=== PATIENT | female | born 1985 | race Caucasian/White ===

== ENCOUNTER 2024-11-20 10:18 | Inpatient (IN) ==
--- NOTE | 2024-11-20 10:22 | Emergency Department Note ---
Impression & Plan Stroke-like symptoms, Expressive aphasia ED Provider Note NAME: ZEN MEDEIROS AGE: 39 SEX: F : 1985 ARRIVES VIA: Ambulance INFORMANT: Patient, , EMS report ED PROVIDER(S): Jono Jacques MD CHIEF COMPLAINT: Strokelike symptoms, aphasia MEDICAL DECISION MAKING: Patient presents with the above. The patient's last known well began sometime around 7 although was not called by till 745. The patient reportedly has had improvement since the time of that the had arrived. Patient was made a stroke alert prior to arrival and I did initiate a call to the on-call stroke teleneurologist Dr. Smith and did explain the concerns. Patient was evaluated. Patient does seem to have symmetric leg weakness but has good strength in her upper extremities. Patient had reportedly felt as though she was wobbly or "drunk." Patient not reporting any alcohol tobacco or drug use. She did take some Delsym this morning as she was having some congestion. Patient slightly off and [id number]. No sensory deficits no facial droop. No anisocoria. Patient's blood work is reassuring. Patient has a normal white count H&H and platelet count kidney function is unremarkable. Troponin negative. COVID flu RSV negative the patient did have some upper respiratory symptoms. CT head and CT angiography of the head and neck are negative. After further discussion and evaluation by Dr. Smith he does not think the patient is having an acute stroke. He recommends baby aspirin to start an MRI. It is with the on-call hospitalist service and the patient was admitted to medicine service. I did inform the patient and the patient's family of current recommendations and findings at this time. MRI pending at the time of admission. Discussion w/ other healthcare providers: Dr. Smith telestroke neurology [facility] Lisa Thrasher PA-C and Dr. Gogo Orta Prior /Outside records reviewed: None Differential diagnosis: Infection, dehydration, metabolic abnormality, hypo/hyperglycemia, electrolyte imbalance, anemia, UTI, pneumonia, thyroid dysfunction among others were considered. Diagnostics, as interpreted by me: ECG: Normal sinus rhythm, rate of 75, normal intervals, left axis deviation, T wave versions anteriorly no obvious STEMI. Cardiac monitoring: An order was placed for continuous cardiac monitoring. The monitor shows a rate of 72 with sinus rhythm. Patient was placed on pulse oximetry Medical decision rules: None Imaging studies: I informally interpreted the patient's CT head does not show obvious ICH with formal report to follow. HPI: Patient presents due to concern for strokelike symptoms and difficulty with speaking. This reportedly occurred around 9:00 of the patient began feeling generally unwell around 745. 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 No reported falls or trauma. No prior history of stroke or mini stroke. The patient called her who was concerned and took her to a [facility] walk-in care and then was referred here for further evaluation and treatment. Was notified of a stroke alert prior to arrival. Patient denies any head neck chest back or abdominal pain. No reported falls or trauma. No alcohol tobacco or drug use. The patient does not take blood thinning medications. PAST MEDICAL HISTORY: See Below PAST SURGICAL HISTORY: See Below SOCIAL HISTORY: See Below HOME MEDICATIONS: See Below ALLERGIES: See Below VITALS: See Below PHYSICAL EXAMINATION: GENERAL: NAD, non-toxic. EYE EXAM: Normal conjunctiva. PERRL, no anisocoria and EOM's grossly intact w/o pain. OROPHARYNX: Moist mucus membranes, grossly normal dentition. NECK: Trachea midline, no stridor. Supple, no nuchal rigidity, no adenopathy, non-tender. No signs of meningismus. FROM of the neck with good chin to chest and neck extension. LUNGS: Clear to auscultation. Normal chest wall mechanics. HEART: NSR, no MRG. ABDOMEN: Abdomen soft, non-tender, no masses, no rebound or guarding. BACK: No CVA TTP. SKIN: No rashes and no bruising. UPPER EXTREMITIES: Upper extremities are grossly normal. LOWER EXTREMITIES: Grossly normal, no edema. NEURO EXAM: Awake and alert, follows commands, cranial nerves II through XII grossly intact, slow deliberate stuttering speech, moves all 4 extremities. Slight difficulty with [id number], no drift and no sensory deficits. Past Med/Surg History Problem List (Updated 11/25/24 @ 15:35 by Jono Jacques MD) Expressive aphasia (Acute) Stroke-like symptoms (Acute) Medical History Exercise-induced asthma PATRICK (generalized anxiety disorder) GERD without esophagitis Attention deficit disorder (ADD) without hyperactivity Patellofemoral pain syndrome of right knee Dislocation of right patella Surgical History History of wisdom tooth extraction Family History Mother Stroke Other Diabetes Heart disease Social History Smoking Status: Current some day smoker Tobacco Type: E-cigarettes / Vaping Hx Alcohol Use: Yes Alcohol type: beer Hx Substance Use: No Preferred Language: Slovak [place] [employer] Required: No Beliefs That Will Affect Care: None marital status: Current Living Situation: Spouse current occupational status: employed Feels Safe at Home: Yes Safety Concerns: Feels Safe At This Time Allergies Allergies Allergy/AdvReac Type Severity Reaction Status Date / Time No Known Allergies Allergy Unverified 07/26/23 10:20 Home Meds Home Medications Medication Instructions Recorded Confirmed trazodone 50 mg tablet 75 mg PO DAILY 07/26/23 11/20/24 dexmethylphenidate 5 mg 5 mg PO DAILY 11/20/24 11/20/24 capsule,extended release [id number] fluoxetine 40 mg capsule 80 mg PO DAILY 11/20/24 11/20/24 Results & Data (ED) Home Medications Current Medication List: was personally reviewed by me Laboratory Data Attestation: I reviewed the patient's lab results. 11/21/24 07:34 11/21/24 07:34 Lab Results 11/20/24 11/20/24 Range/Units 10:23 11:28 WBC 9.68 (4.8-10.8) K/ul RBC 4.57 (4.20-5.40) M/uL Hgb 14.0 (12.0-16.0) g/dl Hct 40.9 (37.0-47.0) % MCV 89.5 (80.0-100.0) fL MCH 30.6 (25.0-34.0) pg MCHC 34.2 (32.0-36.0) g/dL RDW Std Deviation 39.5 (36.4-46.3) fL RDW Coeff of Coco 12.0 (11.5-14.5) % Plt Count 277 (130-400) K/uL MPV 9.2 L (9.4-12.4) fL Immature Gran % (Auto) 0.4 % Neut % (Auto) 72.7 % Lymph % (Auto) 17.0 % Mcmullen % (Auto) 8.3 % Eos % (Auto) 1.3 % Baso % (Auto) 0.3 % Neut # (Auto) 7.03 H (1.40-6.50) K/uL Lymph # (Auto) 1.65 (1.20-3.40) K/uL Mcmullen # (Auto) 0.80 H (0.11-0.59) K/uL Eos # (Auto) 0.13 (0.00-0.50) K/uL Baso # (Auto) 0.03 (0.00-0.20) K/uL Immature Gran # (Auto) 0.04 (0.01-0.20) K/uL PT 10.2 (9.0-12.0) Seconds INR 0.9 (0.9-1.1) APTT 26 (21-31) Seconds PTT Ratio 1.0 Sodium 139 (136-145) mmol/L Potassium 3.8 (3.5-5.1) mmol/L Chloride 103 (98-107) mmol/L Carbon Dioxide 28 (21-32) mmol/L Anion Gap 8 (3-11) BUN 6 (6-23) mg/dl Creatinine 0.78 (0.6-1.2) mg/dl Est Cr Clr Drug Dosing Not Reportable eGFR 97.80 BUN/Creatinine Ratio 7.7 L (10-20) Glucose 92 (70-99(Fasting)) mg/dl Calcium 9.2 (8.6-10.3) mg/dl Magnesium 1.7 (1.7-2.4) mg/dl Total Bilirubin 0.4 (0.2-1.0) mg/dl AST 24 (13-39) U/L ALT 13 (7-52) U/L Alkaline Phosphatase 75 (34-104) U/L Troponin I High Sens < 2.3 (0-14) pg/ml Total Protein 7.2 (6.0-8.3) gm/dl Albumin 4.5 (3.4-5.0) gm/dl Globulin 2.7 (2.5-4.0) gm/dl Albumin/Globulin Ratio 1.7 (0.9-2) SARS-CoV-2 (PCR) NEGATIVE (Negative) Influenza Type A (PCR) Negative (Neg) Influenza Type B (PCR) Negative (Neg) RSV (RT-PCR) Negative (Neg) Administered Medications Discontinued Medications Aspirin (Aspirin Chew 324 Mg) 81 mg PO NOW STA Stop: 11/20/24 11:05 Last Admin: 11/20/24 11:26 Dose: 81 mg Documented By: KAREN Atorvastatin Calcium (Atorvastatin 40 Mg Tab) [facility] [place] [facility] Stop: 12/20/24 12:29 Last Admin: 11/20/24 13:07 Dose: 40 mg Documented By: PETERSON Enoxaparin Sodium (Enoxaparin Inj 40 Mg/0.4 Ml Syr) 40 [facility] [place] Stop: 12/21/24 08:59 Last Admin: 11/21/24 07:35 Dose: 40 mg Documented By: ESTELA Sodium Chloride (Nss) 1,000 mls @ 80 mls/hr IV .[id number] [facility] Stop: 11/23/24 15:44 Last Infusion: 11/21/24 10:08 Dose: 0 mls/hr Documented By: Admin: 11/21/24 04:10 Dose: 80 mls/hr Documented By: Infusion: 11/21/24 04:10 Dose: Infused Documented By: Admin: 11/20/24 16:42 Dose: 80 mls/hr Documented By: ESTELA Ioversol (Optiray 320 125ml) 120 ml IV ONCE ONE Stop: 11/20/24 10:36 Last Admin: 11/20/24 10:35 Dose: 120 ml Documented By: SIL Imaging Data Radiologist's Impression: Head CT 11/20/24 10:07 CT head/brain wo con CLINICAL HISTORY: neuro deficit, acute stroke suspected. TECHNIQUE: Multiple axial CT images of the head were obtained without contrast. A dose lowering technique was utilized adhering to the principles of ALARA. COMPARISON: None FINDINGS: No intracranial hemorrhage seen. No mass effect, midline shift, or hydrocephalus. No skull fractures seen. There is mild mucosal thickening at the right maxillary sinus. IMPRESSION: No acute findings. ACT 112: Negative or not required by law. The above report was generated using voice recognition software. It may contain grammatical, syntax or spelling errors. Electronically signed by: Pablo Fleming M.D. 11/20/2024 10:43 AM Head CTA 11/20/24 10:07 CT angio head w con CLINICAL HISTORY: neuro deficit, acute stroke suspected. COMPARISON STUDY: Noncontrast head CT earlier today TECHNIQUE: Unenhanced axial CT scan of the brain is performed. Subsequently, following the IV administration of 120 cc of Optiray, CT angiogram of the brain was performed from the skull base to the vertex. Images are reviewed in the axial, sagittal, and coronal planes. 3-D MIPS images are created and assessed. IV contrast was administered without complication. All measurements were obtained according to NASCET criteria. A dose lowering technique was utilized adhering to the principles of ALARA. CT DOSE: 987 FINDINGS: Distal right vertebral artery is diminutive, anatomic variant. Distal vertebral and internal carotid arteries are patent. Basilar artery is patent. Anterior, middle, and posterior cerebral arteries are patent. Cerebral venous sinuses opacify normally. There is prominent mucosal thickening in the right maxillary sinus. IMPRESSION: No arterial narrowing or occlusion seen at the brain. ACT 112: Negative or not required by law. The above report was generated using voice recognition software. It may contain grammatical, syntax or spelling errors. Electronically signed by: Pablo Fleming M.D. 11/20/2024 10:47 AM Neck CTA 11/20/24 10:07 CT ANGIOGRAPHY OF THE NECK WITH CONTRAST CLINICAL HISTORY: neuro deficit, acute stroke suspected. Speech difficulties. COMPARISON STUDY: No previous studies for comparison. Technique: CT angiography of the carotid and vertebral arteries was obtained using Optiray and 3D reconstruction on an independent workstation. NASCET criteria was utilized. Automated exposure control was utilized for the study. A dose lowering technique was utilized adhering to the principles of ALARA. CT DOSE: 987.1 mGy.cm Findings: Visualized portions of the lung apices are unremarkable. There is no cervical lymphadenopathy. There are no cervical spine fractures. The bilateral common carotid, cervical internal carotid and vertebral arteries are patent. No stenosis, aneurysm or dissection within the neck. Moderate right maxillary sinus mucosal thickening is noted. There is also mild mucosal thickening of the right sphenoid and ethmoid sinuses. IMPRESSION: Unremarkable CTA of the neck. ACT 112: Negative or not required by law. Electronically signed by: Zachery aNpoles M.D. 11/20/2024 10:43 AM Brain MRI 11/20/24 11:05 MR brain wo con CLINICAL HISTORY: eval for stroke COMPARISON STUDY: CT scan earlier today FINDINGS: No restricted diffusion seen to suggest acute infarction. No mass effect, midline shift, or hydrocephalus. There is prominent mucosal thickening inferiorly at the right maxillary sinus and mild mucosal thickening at the sphenoid sinus. No significant signal abnormality seen in the brain. IMPRESSION: No evidence of acute infarction. ACT 112: Negative or not required by law. Electronically signed by: Pablo Fleming M.D. 11/20/2024 2:34 PM Discharge Plan Visit Data Chief Complaint: Stroke Alert ED Provider: Jono Jacques Discharge Problem: Stroke-like symptoms, Expressive aphasia Patient Disposition: Admitted As Inpatient Condition: Good Discharge Instructions Interventions: ED Discharge Assessment Last Done: 11/20/24 13:10
[2024-11-20 10:33] LABS: Basophils # (auto) 0.03 K/uL (0.00-0.20); Basophils % (auto) 0.3 %; Eosinophils # (auto) 0.13 K/uL (0.00-0.50); Eosinophils % (auto) 1.3 %; Hematocrit (blood only) 40.9 % (37.0-47.0); Immature Granulocytes # (auto) 0.04 K/uL (0.01-0.20); Immature Granulocytes % (auto) 0.4 %; Lymphocytes # (auto) 1.65 K/uL (1.20-3.40); Mean Corpuscular Hemoglobin 30.6 pg (25.0-34.0); Mean Corpuscular Hgb Conc 34.2 g/dL (32.0-36.0); Mean Corpuscular Volume 89.5 fL (80.0-100.0); Mean Platelet Volume 9.2 fL (9.4-12.4); Monocytes % (auto) 8.3 %; Neutrophils # (auto) 7.03 K/uL (1.40-6.50); Neutrophils % (auto) 72.7 %; Platelet Count 277 K/uL (130-400); RDW Standard Deviation 39.5 fL (36.4-46.3); Red Blood Count 4.57 M/uL (4.20-5.40); White Blood Count 9.68 K/ul (4.8-10.8)
[2024-11-20] MEDS: OPTIRAY 320 125ml IV ONE (10:35)
--- NOTE | 2024-11-20 10:44 | CT Scan Report ---
CT head/brain wo con CLINICAL HISTORY: neuro deficit, acute stroke suspected. TECHNIQUE: Multiple axial CT images of the head were obtained without contrast. A dose lowering tech nique was utilized adhering to the principles of ALARA. COMPARISON: None FINDINGS: No intracranial hemorrhage seen. No mass effect, midline shift, or hydrocephalus. No skull fractures seen. There is mild mucosal thickening at the right maxillary sinus. IMPRESSION: No acute findings. ACT 112: Negative or not required by law. The above report was generated using voice recognition software. It may contain grammatical, syntax o r spelling errors. Electronically signed by: Pablo Fleming M.D. 11/20/2024 10:43 AM
--- NOTE | 2024-11-20 10:44 | CT Scan Report ---
CT ANGIOGRAPHY OF THE NECK WITH CONTRAST CLINICAL HISTORY: neuro deficit, acute stroke suspected. Speech difficulties. COMPARISON STUDY: No previous studies for comparison. Technique: CT angiography of the carotid and vertebral arteries was obtained using Optiray and 3D rec onstruction on an independent workstation. NASCET criteria was utilized. Automated exposure control was utilized for the study. A dose lowering technique was utilized adhering to the principles of ALA RA. CT DOSE: 987.1 mGy.cm Findings: Visualized portions of the lung apices are unremarkable. There is no cervical lymphadenopat hy. There are no cervical spine fractures. The bilateral common carotid, cervical internal carotid an d vertebral arteries are patent. No stenosis, aneurysm or dissection within the neck. Moderate right maxillary sinus mucosal thickening is noted. There is also mild mucosal thickening of the right sphen oid and ethmoid sinuses. IMPRESSION: Unremarkable CTA of the neck. ACT 112: Negative or not required by law. Electronically signed by: Zachery Napoles M.D. 11/20/2024 10:43 AM
[2024-11-20 10:47] LABS: INR 0.9 (0.9-1.1); Partial Thromboplastin Time 26 Seconds (21-31); Prothrombin Time 10.2 Seconds (9.0-12.0)
--- NOTE | 2024-11-20 10:49 | CT Scan Report ---
CT angio head w con CLINICAL HISTORY: neuro deficit, acute stroke suspected. COMPARISON STUDY: Noncontrast head CT earlier today TECHNIQUE: Unenhanced axial CT scan of the brain is performed. Subsequently, following the IV adminis tration of 120 cc of Optiray, CT angiogram of the brain was performed from the skull base to the vert ex. Images are reviewed in the axial, sagittal, and coronal planes. 3-D MIPS images are created and a ssessed. IV contrast was administered without complication. All measurements were obtained according to NASCET criteria. A dose lowering technique was utilized adhering to the principles of ALARA. CT DOSE: 987 FINDINGS: Distal right vertebral artery is diminutive, anatomic variant. Distal vertebral and interna l carotid arteries are patent. Basilar artery is patent. Anterior, middle, and posterior cerebral art eries are patent. Cerebral venous sinuses opacify normally. There is prominent mucosal thickening in the right maxillary sinus. IMPRESSION: No arterial narrowing or occlusion seen at the brain. ACT 112: Negative or not required by law. The above report was generated using voice recognition software. It may contain grammatical, syntax o r spelling errors. Electronically signed by: Pablo Fleming M.D. 11/20/2024 10:47 AM
[2024-11-20 10:52] LABS: Alanine Aminotransferase 13 U/L (7-52); Albumin Globulin Ratio 1.7 (0.9-2); Albumin Level 4.5 gm/dl (3.4-5.0); Alkaline Phosphatase 75 U/L (34-104); Anion Gap 8 (3-11); Aspartate Aminotransferase 24 U/L (13-39); BUN Creatinine Ratio 7.7 (10-20); Bilirubin,Total 0.4 mg/dl (0.2-1.0); Blood Urea Nitrogen 6 mg/dl (6-23); Calcium 9.2 mg/dl (8.6-10.3); Carbon Dioxide 28 mmol/L (21-32); Chloride 103 mmol/L (98-107); Globulin 2.7 gm/dl (2.5-4.0); Glucose 92 mg/dl (70-99(Fasting)); Magnesium 1.7 mg/dl (1.7-2.4); Potassium 3.8 mmol/L (3.5-5.1); Sodium 139 mmol/L (136-145); Total Protein 7.2 gm/dl (6.0-8.3)
[2024-11-20 10:57] LABS: Troponin I High Sensitivity < 2.3 pg/ml (0-14)
[2024-11-20] MEDS: ASPIRIN CHEW 324 MG PO STA (11:26)
--- NOTE | 2024-11-20 12:09 | History & Physical Report ---
Date of Service November 20, 2024 Assessment & Plan (1) Stroke-like symptoms: (2) Expressive aphasia: (3) Attention deficit disorder (ADD) without hyperactivity: (4) PATRICK (generalized anxiety disorder): Plan This is a 39 y/o female with history of ADD without hyperactivity and PATRICK who presented to the ED today as a stroke alert. Symptoms on presentation included expressive aphasia, tingling in hands, and sensation of limb heaviness. Initial CT head, CTA head/neck were negative. Seen by tele-neurologist and was offered TNK but declined. Symptoms are improving other than residual expressive aphasia. Pt was referred for admission for further evaluation and management. #Stroke-like symptoms #Expressive aphasia - Admit to PCU - Neuro checks per protocol - MRI Brain - Aspirin 81 mg daily - started in the ED - Atorvastatin 40 mg daily - starting today - Lipid panel, A1c in the AM - ECHO - PT, OT, speech therapy evaluations - Consult neurology #ADHD #PATRICK Chronic, stable Continue outpatient medications Pt seen and evaluated with collaborating physician, Dr. Bowens. Plan of care discussed and as outlined above. Code status: Full code DVT Prophylaxis: Paulo Thrasher PA-C History of Present Illness Chief Complaint: stroke alert Primary Care Provider: Jono Brewer MD This is a 39 y/o female with history of ADD without hyperactivity and PATRICK who presented to the ED today as a stroke alert. Pt reports cold symptoms for the last 5-7 days including cough, congestion, sinus pressure, bilateral ear fullness, and rhinorrhea. This morning around 6 am she took a dose of Delsym for the cough. Shortly after taking this, she started to feel off-balance and foggy ("like I was drunk") so she called her to come pick her up and take her to urgent care. Around 9 am, as she was being checked into urgent care and started with expressive aphasia. Also noted generalized sense of heaviness in her extremities and tingling in bilateral hands. She has never had symptoms like this previously. Currently, she reports feeling fine except for the expressive aphasia. The sensation of heaviness and tingling have resolved. She reports that she's thinking clearly but has trouble finding the right words. She denies dysphagia, facial droop, headache, chest pain, dyspnea, vision changes. Allergies Allergy/AdvReac Type Severity Reaction Status Date / Time No Known Allergies Allergy Unverified 07/26/23 10:20 Home Medications Medication Instructions Recorded Confirmed Type trazodone 50 mg tablet 75 mg PO DAILY 07/26/23 11/20/24 History dexmethylphenidate 5 mg 5 mg PO DAILY 11/20/24 11/20/24 History capsule,extended release [id number] fluoxetine 40 mg capsule 80 mg PO DAILY 11/20/24 11/20/24 History Past Med/Surg History Problem List (Updated 11/20/24 @ 12:54 by Reina Thrasher PA-C) Expressive aphasia Stroke-like symptoms Medical History Exercise-induced asthma PATRICK (generalized anxiety disorder) GERD without esophagitis Attention deficit disorder (ADD) without hyperactivity Patellofemoral pain syndrome of right knee Dislocation of right patella Surgical History History of wisdom tooth extraction Family History Mother Stroke Other Diabetes Heart disease Social History Smoking Status: Current some day smoker Tobacco Type: E-cigarettes / Vaping Preferred Language: Urugu[place] marital status: Current Living Situation: Spouse current occupational status: employed Feels Safe at Home: Yes Review of Systems Review of Systems: All systems reviewed & are unremarkable except as noted in Subjective Physical Exam Physical Exam: Please see physician note for details of the physical exam Results & Data Results & Data Vital Signs (Past 12 Hours) Vital Signs Temp Pulse Resp BP Pulse Ox O2 Del Method 11/20/24 11:03 112/81 11/20/24 11:00 76 24 96 Room Air 11/20/24 10:46 87 11/20/24 10:06 37.5 C 75 15 112/82 97 Room Air Laboratory Results Lab Results 11/20/24 Range/Units 10:23 WBC 9.68 (4.8-10.8) K/ul RBC 4.57 (4.20-5.40) M/uL Hgb 14.0 (12.0-16.0) g/dl Hct 40.9 (37.0-47.0) % MCV 89.5 (80.0-100.0) fL MCH 30.6 (25.0-34.0) pg MCHC 34.2 (32.0-36.0) g/dL RDW Std Deviation 39.5 (36.4-46.3) fL RDW Coeff of Coco 12.0 (11.5-14.5) % Plt Count 277 (130-400) K/uL MPV 9.2 L (9.4-12.4) fL Immature Gran % (Auto) 0.4 % Neut % (Auto) 72.7 % Lymph % (Auto) 17.0 % [place] % (Auto) 8.3 % Eos % (Auto) 1.3 % Baso % (Auto) 0.3 % Neut # (Auto) 7.03 H (1.40-6.50) K/uL Lymph # (Auto) 1.65 (1.20-3.40) K/uL [place] # (Auto) 0.80 H (0.11-0.59) K/uL Eos # (Auto) 0.13 (0.00-0.50) K/uL Baso # (Auto) 0.03 (0.00-0.20) K/uL Immature Gran # (Auto) 0.04 (0.01-0.20) K/uL PT 10.2 (9.0-12.0) Seconds INR 0.9 (0.9-1.1) APTT 26 (21-31) Seconds PTT Ratio 1.0 Sodium 139 (136-145) mmol/L Potassium 3.8 (3.5-5.1) mmol/L Chloride 103 (98-107) mmol/L Carbon Dioxide 28 (21-32) mmol/L Anion Gap 8 (3-11) BUN 6 (6-23) mg/dl Creatinine 0.78 (0.6-1.2) mg/dl Est Cr Clr Drug Dosing Not Reportable eGFR 97.80 BUN/Creatinine Ratio 7.7 L (10-20) Glucose 92 (70-99(Fasting)) mg/dl Calcium 9.2 (8.6-10.3) mg/dl Magnesium 1.7 (1.7-2.4) mg/dl Total Bilirubin 0.4 (0.2-1.0) mg/dl AST 24 (13-39) U/L ALT 13 (7-52) U/L Alkaline Phosphatase 75 (34-104) U/L Troponin I High Sens < 2.3 (0-14) pg/ml Total Protein 7.2 (6.0-8.3) gm/dl Albumin 4.5 (3.4-5.0) gm/dl Globulin 2.7 (2.5-4.0) gm/dl Albumin/Globulin Ratio 1.7 (0.9-2) Diagnostic Findings Head CT 11/20/24 10:07 CT head/brain wo con CLINICAL HISTORY: neuro deficit, acute stroke suspected. TECHNIQUE: Multiple axial CT images of the head were obtained without contrast. A dose lowering technique was utilized adhering to the principles of ALARA. COMPARISON: None FINDINGS: No intracranial hemorrhage seen. No mass effect, midline shift, or hydrocephalus. No skull fractures seen. There is mild mucosal thickening at the right maxillary sinus. IMPRESSION: No acute findings. ACT 112: Negative or not required by law. The above report was generated using voice recognition software. It may contain grammatical, syntax or spelling errors. Electronically signed by: Pablo Fleming M.D. 11/20/2024 10:43 AM Head CTA 11/20/24 10:07 CT angio head w con CLINICAL HISTORY: neuro deficit, acute stroke suspected. COMPARISON STUDY: Noncontrast head CT earlier today TECHNIQUE: Unenhanced axial CT scan of the brain is performed. Subsequently, following the IV administration of 120 cc of Optiray, CT angiogram of the brain was performed from the skull base to the vertex. Images are reviewed in the axial, sagittal, and coronal planes. 3-D MIPS images are created and assessed. IV contrast was administered without complication. All measurements were o btained according to NASCET criteria. A dose lowering technique was utilized adhering to the principles of ALARA. CT DOSE: 987 FINDINGS: Distal right vertebral artery is diminutive, anatomic variant. Distal vertebral and internal carotid arteries are patent. Basilar artery is patent. Anterior, middle, and posterior cerebral arteries are patent. Cerebral venous sinuses opacify normally. There is prominent mucosal thickening in the right maxillary sinus. IMPRESSION: No arterial narrowing or occlusion seen at the brain. ACT 112: Negative or not required by law. The above report was generated using voice recognition software. It may contain grammatical, syntax or spelling errors. Electronically signed by: Pablo Fleming M.D. 11/20/2024 10:47 AM Neck CTA 11/20/24 10:07 CT ANGIOGRAPHY OF THE NECK WITH CONTRAST CLINICAL HISTORY: neuro deficit, acute stroke suspected. Speech difficulties. COMPARISON STUDY: No previous studies for comparison. Technique: CT angiography of the carotid and vertebral arteries was obtained using Optiray and 3D reconstruction on an independent workstation. NASCET criteria was utilized. Automated exposure control was utilized for the study. A dose lowering technique was utilized adhering to the principles of ALARA. CT DOSE: 987.1 mGy.cm Findings: Visualized portions of the lung apices are unremarkable. There is no cervical lymphadenopathy. There are no cervical spine fractures. The bilateral common carotid, cervical internal carotid and vertebral arteries are patent. No stenosis, aneurysm or dissection within the neck. Moderate right maxillary sinus mucosal thickening is noted. There is also mild mucosal thickening of the right sphenoid and ethmoid sinuses. IMPRESSION: Unremarkable CTA of the neck. ACT 112: Negative or not required by law. Electronically signed by: Zachery Napoles M.D. 11/20/2024 10:43 AM Medications Administered Discontinued Medications Aspirin (Aspirin Chew 324 Mg) 81 mg PO NOW STA Stop: 11/20/24 11:05 Last Admin: 11/20/24 11:26 Dose: 81 mg Documented By: KAREN Ioversol (Optiray 320 125ml) 120 ml IV ONCE ONE Stop: 11/20/24 10:36 Last Admin: 11/20/24 10:35 Dose: 120 ml Documented By: JAR Supervising Physician Co-Signing Physician Notes Presents with 5 days of URI and acute onset aphasia that started about 9AM today +Family hx of TIA and hemiplegic migraine in mother +Hx of vaping, occasional wine drinking. No illicit drug use On exam, General: Not in respiratory distress Eyes: Conjunctivae normal, not pale, anicteric sclerae ENMT: External ear and nose normal, oropharynx normal Respiratory: Normal respiratory effort, no respiratory distress, lungs clear to auscultation, no crackles and no wheezes Cardiovascular: RRR S1 S2 Gastrointestinal (Abdomen): Abdomen is not distended, soft, non-tender to palpation, no guarding, no palpable hepatosplenomegaly, normal bowel sounds Musculoskeletal: No pedal edema Neurologic: Alert and oriented x 3, +Expressive dysphasia, Power is normal and equal in all extremities, No sensory deficits noted. CN II, II, IV, V, , VII, IX, XI, XII grossly intact. No dysdiadochokinesia. Psychiatric: Euthymic affect CT head did not show any acute abnormalities CTA H/N are unremarkable Patient was evaluated as Stroke alert but declined TNK Get MRI Brain Start ASA 81mg daily Get TTE, Lipid panel, HbA1c Neurology consult Agree with other plans as detailed by Niru Thrasher PA-C I spent a total of 45 minutes coordinating, documenting and providing care for this patient excluding time spent in performance of separately billed services
[2024-11-20 12:21] VITALS: RESP 18
[2024-11-20 12:28] LABS: Influenza A virus by PCR Negative (Neg); Influenza B virus by PCR Negative (Neg); RSV by PCR Negative (Neg); SARS CoV2 RNA(COVID-19) Ceph NEGATIVE (Negative)
[2024-11-20] MEDS: ATORVASTATIN 40 MG TAB PO SCH (13:07)
[2024-11-20] MEDS ORDERED: PHARMACIST DISCHARGE MED REC CONSULT PRN (13:27)
--- NOTE | 2024-11-20 14:35 | Magnetic Resonance Report ---
MR brain wo con CLINICAL HISTORY: eval for stroke COMPARISON STUDY: CT scan earlier today FINDINGS: No restricted diffusion seen to suggest acute infarction. No mass effect, midline shift, or hydrocephalus. There is prominent mucosal thickening inferiorly at the right maxillary sinus and mil d mucosal thickening at the sphenoid sinus. No significant signal abnormality seen in the brain. IMPRESSION: No evidence of acute infarction. ACT 112: Negative or not required by law. Electronically signed by: Pablo Fleming M.D. 11/20/2024 2:34 PM
--- NOTE | 2024-11-20 15:24 | Neurology Consultation ---
Date of Consultation November 20, 2024 Assessment & Plan (1) Expressive aphasia: Marla Reed is a 39 yo F presenting with expressive aphasia and brain fog after taking cold medicine. Speech pattern with the negative MRI suggests a functional neurologic disorder otherwise. Recommend gently hydrating and obse rving for improvement. Can stop aspirin and lipitor. Avoid taking this medication combination in the future. No further neurologic workup otherwise. Telehealth Consultation Telehealth Information Telehealth Information: I performed this visit using a real-time telehealth connection between my loca tion and the patients location ([facility]). After connecting through interactive tele-video, patient was identified by name and date of and/or wristband check.Patient (or authorized healthcare lead generation representative) was informed that this was a telemedicine visit and it was being conducted confidentially over secure lines. My office door was closed and no one else was present in the room with me.Patient (or authorized healthcare lead generation representative) provided consent to proceed with the visit, expressed an understanding of privacy and security of the telemedicine visit, and gave permission to have a hospital lead generation representative in the room in order to assist with the visit and to conduct portions of the visit, as needed. I informed the patient (or authorized healthcare lead generation representative) that I reviewed their record and presented the opportunity for them to ask any questions regarding the visit today. The patient agreed to participate. History of Present Illness Reason for Consultation: Aphasia Requesting Physician: Dr. Bowens Attending Physician: Minal Bowens MD History of Present Illness Marla Reed is a 39 yo F presenting with aphasia after taking cold medicine today along with her usual ADHD meds. Patient has had viral URI symptoms for the past few days. She is able to text fluently but has difficulty producing speech. Has never experienced this before, no increased life stressor identified. Sent to the ED at [facility] from urgent care with concern for stroke. Allergies Allergy/AdvReac Type Severity Reaction Status Date / Time No Known Allergies Allergy Unverified 07/26/23 10:20 Home Medications Medication Instructions Recorded Confirmed Type trazodone 50 mg tablet 75 mg PO DAILY 07/26/23 11/20/24 History dexmethylphenidate 5 mg 5 mg PO DAILY 11/20/24 11/20/24 History capsule,extended release [id number] fluoxetine 40 mg capsule 80 mg PO DAILY 11/20/24 11/20/24 History Patient History Medical History Exercise-induced asthma PATRICK (generalized anxiety disorder) GERD without esophagitis Attention deficit disorder (ADD) without hyperactivity Patellofemoral pain syndrome of right knee Dislocation of right patella Surgical History History of wisdom tooth extraction Family History Mother Stroke Other Diabetes Heart disease Social History Smoking Status: Current some day smoker Tobacco Type: E-cigarettes / Vaping Hx Alcohol Use: Yes Alcohol type: beer Hx Substance Use: No 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 Oriented to person, place, and time. Dysfluent with choppy speech. Comprehension intact. Affect appropriate. Cranial Nerves: II: Reads NIHSS cards, pupils 3/3 to 2/2, flood grossly intact. III/IV/: Versions intact without nystagmus, no gaze preference. V: Facial sensation symmetric to light touch VII: Facial expression symmetric VIII: Hearing intact to voice Motor: Strength was symmetric and antigravity throughout. Pronator drift was absent. There were no abnormal movements. Results & Data Vital Signs (Past 12 Hours) Vital Signs Temp Pulse Pulse Resp BP BP Pulse Ox 11/20/24 13:32 36.8 C 76 18 111/77 94 11/20/24 13:00 69 18 106/60 96 11/20/24 12:00 69 18 106/70 97 11/20/24 11:03 112/81 11/20/24 11:00 76 24 96 11/20/24 10:46 87 11/20/24 10:06 37.5 C 75 15 112/82 97 O2 Del Method 11/20/24 13:32 Room Air 11/20/24 13:00 Room Air 11/20/24 12:00 Room Air 11/20/24 11:03 11/20/24 11:00 Room Air 11/20/24 10:46 11/20/24 10:06 Room Air Laboratory Results Abnormal lab results 11/20/24 Range/Units 10:23 MPV 9.2 L (9.4-12.4) fL Neut # (Auto) 7.03 H (1.40-6.50) K/uL [place] # (Auto) 0.80 H (0.11-0.59) K/uL BUN/Creatinine Ratio 7.7 L (10-20) Diagnostic Findings MRI brain unremarkable
--- OUTSIDE RECORDS SUMMARY | 2024-11-20 16:22 | External Medical Summary | Summary of Care ---
Author Name Unknown Organization [facility] Address [address] [place] [address] Phone [phone] Care Team Providers Care Compressor Station Operator Name Role Phone Jono Brewer MD Primary Care Provider [phone] Reason for Visit * Reason Onset Date Comments Eye Problem Pt here for righ t eye pain and redness since this morning. Eye Problem 09/17/2024 Encounter Details Date Type Department Care Team (Latest Contact Info) Description 09/17/2024 12:50 PM EST Convenient Care Visit [facility] [address] [place] [address] Jaun Coker PA-C [address] [place] [address] [address] [phone] Acute conjunctivitis of left eye, unspecified acute conjunctivitis type* Allergies No known active allergiesdocumented as of this encounter (statuses as of 09/17/2024) Medications Albuterol Sulfate HFA 108 (90 Base) MCG/ACT Inhalation Aerosol SolutionIndicatio ns:Asthma with severity to be determined,Chroni c cough Inhale 2 Puffs by mouth every 6 hours as needed for Shortness of Breath or Wheezing. 18 g 2 021 Active FLUoxetine HCl 40 MG Oral Capsule (PROzac) take 1 capsule by mouth every morning 90 Capsule 023 Active Ketoconazole 2 % External Shampoo (Nizoral)Indicati ons:Seborrheic dermatitis of scalp Massage into scalp 3x weekly and rinse out after 10 minutes, then titrate down to least amount needed for maintenance. 120 mL 2 Active Additional Information Patient not taking.Reported on 05/29/2024 traZODone HCl 50 MG Oral Tablet (Desyrel)Indicati ons:Primary insomnia Take 1.5 Tablets by mouth at bedtime. 135 Tablet 3 Active Clobetasol Propionate 0.05 % External Ointment (Temovate)Indicat ions:Rash and nonspecific skin eruption Apply 2x daily to rash on back until resolved 30 g Active Dexmethylphenidat e HCl ER 5 MG Oral Capsule Extended Release 24 Hour Take 1 Capsule by mouth in the morning. Active Polymyxin B-Trimethoprim 89370-2.1 UNIT/ML-% Ophthalmic Solution (Polytrim)Indicat ions:Acute conjunctivitis of left eye, unspecified acute conjunctivitis type Use 1-2 drops into affected eye every 4-6 hours while awake. 10 mL 025 Active Arnuity Ellipta 100 MCG/ACT Inhalation Aerosol Powder Breath Activated (fluticasone Furoate)Indicatio ns:Asthma with severity to be determined,Chroni c cough Inhale 1 Puff by mouth daily. Rinse mouth / gargle and spit after each dose 30 Each 5 021 2024 Discontinued(M edication List Clean Up) Dexmethylphenidat e HCl 2.5 MG Oral Tablet 024 2024 Discontinued Hospital, Clinic, or Other Facility Administered Medication Ordered Dose Route Frequency Start Date End Date Status Albuterol Sulfate (Proventil) (2.5 MG/3ML) 0.083% inhalation solution 2.5 mgIndications:Asthma with severity to be determined,Chronic cough 2.5 mg NEBULIZER ONCE PRN 06/03/2021 Active documented as of this encounter (statuses as of 09/17/2024) Active Problems Problem Noted Date Diagnosed Date Attention deficit disorder (ADD) without hyperac tivity 04/09/2023 Overweight (BMI 25.0-29.9) 04/06/2023 Gastroesophageal reflux disease without esophagi tis 04/06/2023 Exercise-induced asthma 06/03/2021 Persistent insomnia 10/18/2020 PATRICK (generalized anxiety disorder) 08/25/2019 Family history of congenital heart defect 2014 Overview (12/01/2014): Pt's mother has bicuspid aortic valve; plan echo at 22-24wks documented as of this encounter (statuses as of 09/17/2024) Resolved Problems Problem Noted Date Diagnosed Date Resolved Date History of 2019 novel valdivia virus disease (COVID-19) 06/03/2021 10/28/2021 Chronic rhinitis 06/03/2021 10/28/2021 H/O dysplastic nevus 02/17/2020 021 Overview (02/17/2020): Mildly atypical nevus (R upper back) Encounter for surveillance of abnormal nevi 02/24/2019 08/25/2019 Overview (02/24/2019): Mildly atypical nevus (R upper back) Carrier of group B Streptococcus 07/05/2015 08/25/2019 Overview (07/05/2015): Abx in labor Encounter for supervision of other normal 12/01/2014 08/25/2019 Overview (11/16/2015): 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 kmb Tdap vaccine administered 05/19/2015 Margarita Brower RN ICD-10 update of inactive term documented as of this encounter (statuses as of 09/17/2024) Immunizations Name Administration Dates Next Due COVID-19 mRNA, LNP-s, No Pre serve, 2-Dose Series (64 Pixels) 07/11/2021,09/25/2020,09/04/2020 Seasonal Influenza, PF, 6 M & above, IM , (FluLaval or Fluzone) 06/03/2021,04/29/2019 TDAP (age 10 and older)(Boostrix) 05/19/2015 documented as of this encounter Social History Tobacco Use Types Packs/Day Years Used Date Smoking Tobacco: Former Cigarettes 1 996 - 07/16/2011 Smokeless Tobacco: Never Comments:Starting smoking at 14 y/o, increased throughout the years, quit in 2011 Alcohol Use Standard Drinks/Week Comments Yes 0 (1 standard drink = 0.6 oz pur e alcohol) occ PHQ-2 Answer Date Recorded PHQ Adult Total Score 0 10/22/2023 Hunger Vital Sign Answer Date Recorded Worried About Running Out of Food in the Last Ye ar Never true 08/25/2019 Ran Out of Food in the Last Year Never true 08/25/2019 Comments No Sex and Gender Information Value Date Recorded Sex Assigned at Female 10/31/2021 10:30 AM EDT Legal Sex Female 5:58 AM EST Gender Identity Female 10/31/2021 10:30 AM EDT Sexual Orientation Straight 10/31/2021 10 :30 AM EDT documented as of this encounter Last Filed Vital Signs Vital Sign Reading Time Taken Comments Blood Pressure 98/66 09/17/2024 12:37 PM EST Pulse 69 09/17/2024 12:37 PM EST Temperature 36.2 °C (97.1 °F) 09/17/2024 12:[address] Respiratory Rate 16 09/17/2024 12:37 PM EST Oxygen Saturation 98% 09/17/2024 12:37 PM EST Inhaled Oxygen Concentration - - Weight 73 kg (161 lb) 09/17/2024 12:37 PM EST Height 167.6 cm (5' 6") 09/17/2024 12:37 PM EST Body Mass Index 25.99 09/17/2024 12:37 PM EST documented in this encounter Patient Instructions * Patient Instructions* Jaun Coker PA-C - 09/17/2024 1:17 PM EST Patient Instructions for Conjunctivitis: 1. Wash hands frequently, especially after touching the eyes, to avoid spread. 2. Use cool compresses on the eyes as needed. 3. Wash crusting eyelids with baby shampoo daily. 4. Wipe the eyes from inner to outer corners. 5. Discard any makeup use until free of symptoms. Change contacts and/or discard used ones until symptoms disappear. 6. Wash bedding including pillowcases every day. 7. [place] law requires child (if applies) to be on AB drops for 24 hours before retuning to school/daycare if bacterial conjunctivitis is contagious until 24 hours after beginning medication. Viral conjunctiviits is contagious for 48 to 72 hours, but it may last up to 2 weeks. 6. Activity - as tolerated 7. Diet - as tolerated 8. Medications - no medications are prescribed for viral infection. You will be given instructions on how to use eye drops or eye ointment if needed. documented in this encounter Progress Notes * Jaun Coker PA-C - 09/17/2024 1:15 PM EST Marla Reed is a 39 year old female who presents with left eye symptoms for 1 days. Patient was accompanied by Self. Quality (Feels like): L eye is red, irritated, sore, watering. Severity of Symptoms: Moderate Timing (How often does it occur): constant Foreign body or trauma? denies Contacts and/or glasses? Glasses occasionally Visual changes (including diplopia, blurry vision, flashes of light)? denies Any OTC medications? N/a Prior history of "pink eye"? Yes in past Any sick contacts? no Any cold symptoms? N/a ROS EXAM See HPI for pertinent positives and negatives PAST MEDICAL AND SOCIAL HISTORY: Past Medical History: Diagnosis Date Asthma, exercise induced Attention deficit disorder (ADD) without hyperactivity 04/09/2023 Encounter for surveillance of abnormal nevi 02/24/2019 Mildly atypical nevus (R upper back) PATRICK (generalized anxiety disorder) 08/25/2019 Gastroesophageal reflux disease without esophagitis 04/06/2023 Mood disorder (HCC) 08/25/2019 Ovarian cyst Overweight (BMI 25.0-29.9) 04/06/2023 Persistent insomnia 10/18/2020 Past Surgical History: Procedure Laterality Date DENTAL SURGERY PROCEDURE NEC wisdom teeth LEVONORGESTREL-RELEASING IUD, 52 MG, 5 YEAR 10/15/2017 Social History Tobacco Use Smoking status: Former Current packs/day: 0.00 Types: Cigarettes Start date: 1995 Quit date: 07/16/2011 Years since quittin.1 Smokeless tobacco: Never Tobacco comments: Starting smoking at 14 y/o, increased throughout the years, quit in 2011 Substance Use Topics Alcohol use: Yes Comment: occ Vaping/E-Cigarette Use Vaping/E-Cigarette Use Never User Vaping/E-Cigarette Substances Vaping/E-Cigarette Devices Current Outpatient Medications Medication Sig Dispense Refill Albuterol Sulfate HFA 108 (90 Base) MCG/ACT Inhalation Aerosol Solution Inhale 2 Puffs by mouth every 6 hours as needed for Shortness of Breath or Wheezing. 18 g 2 FLUoxetine HCl 40 MG Oral Capsule (PROzac) take 1 capsule by mouth every morning 90 Capsule 0 traZODone HCl 50 MG Oral Tablet (Desyrel) Take 1.5 Tablets by mouth at bedtime. 135 Tablet 3 Dexmethylphenidate HCl ER 5 MG Oral Capsule Extended Release 24 Hour Take 1 Capsule by mouth in themorning. Polymyxin B-Trimethoprim 35365-4.1 UNIT/ML-% Ophthalmic Solution (Polytrim) Use 1-2 drops into affected eye every 4-6 hours while awake. 10 mL 0 Ketoconazole 2 % External Shampoo (Nizoral) Massage into scalp 3x weekly and rinse out after 10 minutes, then titrate down to least amount needed for maintenance. (Patient not taking: Reported on 05/29/2024) 120 mL 2 Clobetasol Propionate 0.05 % External Ointment (Temovate) Apply 2x daily to rash on back until resolved 30 g 0 Current Facility-Administered Medications Medication Dose Route Frequency Provider Last Rate Last Admin Albuterol Sulfate (Proventil) (2.5 MG/3ML) 0.083% inhalation solution 2.5 mg 2.5 mg Nebulizer Once PRN Bere Duffy, Review of patient's allergies indicates: No Known Allergies OBJECTIVE: BP 98/66 | Pulse 69 | Temp 36.2 °C (97.1 °F) | Resp 16 | Ht 1.676 m (5' 6") | Wt 73 kg (161 lb) |SpO2 98% | BMI 25.99 kg/m² | BSA 1.84 m² Wt Readings from Last 1 Encounters: 09/17/24 73 kg (161 lb) General appearance: awake, alert, no apparent distress Eyes: PERRL, EOMI without pain. Left conjunctiva with injection, without purulent eye drainage. Crusting of left lid is not noted. There is no foreign body noted in left eye(s). ENT: tms - clear, normal light reflex, no erythema oral pharynx clear, mucus membranes moist No sinus tenderness or facial pain to percussion No turbinate engorgment or discharge Neck: normal, supple, no adenopathy Respiratory: clear to auscultation, no rhonchi, no wheezes, and no crackles Heart: regular rate, regular rhythm, no murmurs , no rubs, and no gallops SKIN: skin color, texture, turgor are normal, no rashes or significant lesions Fluorescein eye stain: 2 drops of proparacaine administered to L eye. Fluorescein strip applied to stain eye. Smith lamp used to examine eye. no corneal abrasion noted. No ulcers, dendritic lesions, or other significant uptake. Irrigated with sterile saline. Pt tolerated procedure well. Assessment: Acute conjunctivitis of left eye, unspecified acute conjunctivitis type (Primary) - Polymyxin B-Trimethoprim 28162-4.1 UNIT/ML-% Ophthalmic Solution (Polytrim); Use 1-2 drops into affected eye every 4-6 hours while awake. Follow Up: Return for Patient to follow up with Primary Care Provider as directed. | For: Patient to follow up with Primary Care Provider as directed Reviewed importance of good handwashing to prevent spread Wash all bedding in hot water as directed, especially pillowcases Change all eye makeup and/or contacts as directed Follow-up with PCP if not improving within 2-3 days, sooner if worsening symptoms Patient goals for plan of care were discussed Patient Instructions Patient Instructions for Conjunctivitis: 1. Wash hands frequently, especially after touching the eyes, to avoid spread. 2. Use cool compresses on the eyes as needed. 3. Wash crusting eyelids with baby shampoo daily. 4. Wipe the eyes from inner to outer corners. 5. Discard any makeup use until free of symptoms. Change contacts and/or discard used ones until symptoms disappear. 6. Wash bedding including pillowcases every day. 7. [place] law requires child (if applies) to be on AB drops for 24 hours before retuning to school/daycare if bacterial conjunctivitis is contagious until 24 hours after beginning medication. Viral conjunctiviits is contagious for 48 to 72 hours, but it may last up to 2 weeks. 6. Activity - as tolerated 7. Diet - as tolerated 8. Medications - no medications are prescribed for viral infection. You will be given instructions on how to use eye drops or eye ointment if needed. Jaun Coker PA-C [facility] [address] [facility] [address] documented in this encounter Plan of Treatment Upcoming Encounters Date Type Department Care Team (Late st Contact Info) Description 10/22/2024 7:40 AM EDT [facility] [place] [address] [phone] November, Jono Shah MD [address] [phone] Health Maintenance Due Date Last Done Comments Hepatitis C Screening 2001 Hepatitis B Vaccine (1 of 3 - 19+ 3-dose series) 2002 Pneumococcal Vaccine: Pediatrics (0 to 5 Years) and At-Risk Patients (6 to 18 Years and 19+ Years) (1 of 2 - PCV) 2002 *SPIROMETRY ONCE FOR ASTHMA-ADULT 06/08/2022 COVID-19 Vaccine ( - 2023- season) 2024 07/11/2021, 09/25/2020, 09/04/2020 Influenza Vaccine (FLU shot) (#1) 2024 06/03/2021, 04/29/2019, 05/04/2015 Mammogram 03/30/2024 03/30/2023 Depression Screening 10/21/2024 10/22/2023 DTap/Tdap Vaccines (2 - Td or Tdap) 05/19/2025 05/19/2015 Pap Smear 12/01/2025 12/01/2022, 09/13, 09/14/2016, Additional history exists Diabetes Screening 05/22/2027 05/22/2024, 0 04/06/2023, 10/18/2020 Cervical Cancer Screening 12/02/2027 HPV/Co-Test 12/02/2027 12/01/2022 Lipid Panel 05/22/2029 05/22/2024, 04/06/2023 HPV (Gardasil) Vaccine Aged Out No lo nger eligible based on patient's age to complete this topic MENINGOCOCCAL (MENACTRA/MENVEO) Aged Out No longer eligible based on patient's age to complete this topic Meningitis B Vaccine (Bexsero/Trumemba) Aged Out No longer eligible based on patient's age to complete this topic documented as of this encounter Medical Devices Not on filedocumented as of this encounter Visit Diagnoses Diagnosis Acute conjunctivitis of left eye, unspecified acute conjunctivitis type- Primary documented in this encounter Care Teams Compressor Station Operator Relationship Specialty Start Date End Date November, Jono Shah [facility] [address] [facility] [id number] PCP - General Family Medicine 10/22/23 documented as of this encounter
--- OUTSIDE RECORDS SUMMARY | 2024-11-20 16:22 | External Medical Summary | Summary of Care ---
Author Name Unknown Organization [facility] Address [address] [place] [address] Phone [phone] Care Team Providers Care Stamping Mill Tender Name Role Phone Jono Brewer MD Primary Care Provider [phone] Reason for Visit * Reason Comments Physical-Exam Pt here today for he r yearly physical Pt states she has been having bad lower stomach cramps once in a while that she can't sit up straight Encounter Details Date Type Department Care Team (Late st Contact Info) Description 10/22/2024 7:40 AM EDT [facility] [address] [phone] Jono Brewer MD [address] [id number] Encounter for routine preventive care for patient older than 28 days*; Lower abdominal pain; PATRICK (generalized anxiety disorder); Overweight (BMI 25.0-29.9); Attention deficit disorder (ADD) without hyperactivity; Encounter for screening mammogram for malignant neoplasm of breast; Screening for depression Allergies No known active allergiesdocumented as of this encounter (statuses as of 10/22/2024) Medications FLUoxetine HCl 40 MG Oral Capsule (PROzac) take 1 capsule by mouth every morning 90 Capsule 05/30/20 23 Active traZODone HCl 50 MG Oral Tablet (Desyrel)Indicatio ns:Primary insomnia Take 1.5 Tablets by mouth at bedtime. 135 Tablet 3 10/22/19 24 Active Clobetasol Propionate 0.05 % External Ointment (Temovate)Indicati ons:Rash and nonspecific skin eruption Apply 2x daily to rash on back until resolved 30 g 05/29/20 24 Active Dexmethylphenidate HCl ER 5 MG Oral Capsule Extended Release 24 Hour Take 1 Capsule by mouth in the morning. 09/16/19 25 Active Albuterol Sulfate HFA 108 (90 Base) MCG/ACT Inhalation Aerosol SolutionIndication s:Asthma with severity to be determined,Chronic cough Inhale 2 Puffs by mouth every 6 hours as needed for Shortness of Breath or Wheezing. 18 g 2 06/03/20 21 025 Discontin ued(Patie nt preferenc e/discont inuation) Ketoconazole 2 % External Shampoo (Nizoral)Indicatio ns:Seborrheic dermatitis of scalp Massage into scalp 3x weekly and rinse out after 10 minutes, then titrate down to least amount needed for maintenance. 120 mL 2 10/22/19 24 025 Discontin ued(Patie nt preferenc e/discont inuation) Polymyxin B-Trimethoprim 67904-5.1 UNIT/ML-% Ophthalmic Solution (Polytrim)Indicati ons:Acute conjunctivitis of left eye, unspecified acute conjunctivitis type Use 1-2 drops into affected eye every 4-6 hours while awake. 10 mL 09/18/19 25 025 Discontin ued(Patie nt preferenc e/discont inuation) Hospital, Clinic, or Other Facility Administered Medication Ordered Dose Route Frequency Start Date End Date Status Albuterol Sulfate (Proventil) (2.5 MG/3ML) 0.083% inhalation solution 2.5 mgIndications:Asthma with severity to be determined,Chronic cough 2.5 mg NEBULIZER ONCE PRN 06/03/2021 Active documented as of this encounter (statuses as of 10/22/2024) Active Problems Problem Noted Date Diagnosed Date [...] as of this encounter (statuses as of 10/22/2024) Resolved Problems Problem Noted Date Diagnosed Date [...] normal 12/01/2014 08/25/2019 Overview (11/16/2015): 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 kmb Tdap vaccine administered 05/19/2015 Margarita Brower RN ICD-10 update of inactive term documented as of this encounter (statuses as of 10/22/2024) Immunizations Name Administration Dates Next Due COVID-19 mRNA, LNP-s, No Pre serve, 2-Dose Series ([employer]) 07/11/2021,09/25/2020,09/04/2020 Seasonal Influenza, PF, 6 M & above, IM , (FluLaval or Fluzone) 06/03/2021,04/29/2019 TDAP (age 10 and older)(Boostrix) 05/19/2015 documented as of this encounter Social History Tobacco Use Types Packs/Day Years Used Date Smoking Tobacco: Former Cigarettes 1 996 - 07/16/2011 Passive Smoke Exposure: Past Smokeless Tobacco: Never Tobacco Cessation:Counseling Given: No Comments:Starting smoking at 14 y/o, increased throughout the years, quit in 2011 Alcohol Use Standard Drinks/Week Comments Yes 0 (1 standard drink = 0.6 oz pur e alcohol) occ PHQ-2 Answer Date Recorded PHQ Adult Total Score 0 10/22/2024 Hunger Vital Sign Answer Date Recorded Within the past 12 months, y ou worried that your food would run out before you got the money to buy more. Never true 10/23/19 25 Within the past 12 months, t he food you bought just didn't last and you didn't have money to get more. Never true 10/22/2024 Childcare Answer Date Recorded Do you feel overwhelmed with taking care of a child, family member or friend? No 10/22/2024 Does your family need help f inding childcare? (Household - for ages 0-17 years) Not on file 10/22/2024 Clothing Answer Date Recorded Have you been unable to get clothing when it was really needed? No 10/22/2024 Is your family able to get c lothes or diapers when needed? (Household - for ages 0-17 years) Not on file 10/22/2024 Personal Safety Answer Date Recorded Do you feel unsafe or have concerns for your saf ety? No 10/22/2024 Do you have concerns for you r family's safety? (Household - for ages 0-17 years) Not on file 10/22/2024 Utilities Answer Date Recorded Do you have trouble paying y our heating, water, or electric bill? No 10/22/2024 Is your family able to pay t he heat, water, or electric bill? (Household - for ages 0-17 years) Not on file 10/22/2024 Does your family have access to good internet? (Household - for ages 0-17 years) Not on file 10/22/2024 Employment Status Answer Date Recorded Are you unemployed or without regular income? No 10/22/2024 Does the household have a re gular source of income? (Household - for ages 0-17 years) Not on file 10/22/2024 Social Connections Answer Date Recorded How often do you feel lonely or isolated from th ose around you? Never 10/22/2024 Financial Resource Strain Answer Date R ecorded Do you have any trouble payi ng for your medications, or do you think you might in the future? No 10/22/2024 Does your family have troubl e paying for medicine? (Household - for ages 0-17 years) Not on file 10/22/2024 Transportation Needs Answer Date Record ed Do you have trouble getting a ride to medical visits or work? (Adult - for ages 18 years and over) Not on file 10/22/2024 Does your family have a hard time getting a ride to doctors visits? (Household - for ages 0-17 years) Not on file 10/22/2024 Has lack of transportation k ept you from medical appointments, meetings, work, or from getting things needed for daily living? Check all that apply. No 10/22/2024 Do you (or your family) have trouble finding or paying for a ride (transportation)? (Household - for ages 0-17 years) Not on file 10/22/2024 Housing Stability Answer Date Recorded Do you currently live in a s helter or have no steady place to sleep at night? No 10/22/2024 Do you think you are at risk of becoming homeless? (Adult - for ages 18 years and over) Not on file 10/22/2024 Does your family worry about paying for your home or becoming homeless? (Household - for ages 0-17 years) Not on file 0 10/22/2024 Are you homeless or worried that you might be in the future? No 10/22/2024 Are you (or your family) farideh eless or worried that you might be in the future? (Household - for ages 0-17 years) Not on file Food Insecurity Answer Date Recorded Within the past 12 months, y ou worried that your food would run out before you got the money to buy more. Never true 10/23/19 25 Within the past 12 months, t he food you bought just didn't last and you didn't have money to get more. Never true 10/22/2024 Do you need food for this week? No 10/22/2024 Comments No Sex and Gender Information Value Date Recorded Sex Assigned at Female 10/31/2021 10:30 AM EDT Legal Sex Female 5:58 AM EST Gender Identity Female 10/31/2021 10:30 AM EDT Sexual Orientation Straight 10/31/2021 10 :30 AM EDT documented as of this encounter Last Filed Vital Signs Vital Sign Reading Time Taken Comments Blood Pressure 95/66 10/22/2024 7:35 AM EDT Pulse 61 10/22/2024 7:35 AM EDT Temperature 36.4 °C (97.5 °F) 10/22/2024 7:35 AM ED T Respiratory Rate 16 10/22/2024 7:35 AM EDT Oxygen Saturation 98% 10/22/2024 7:35 AM EDT Inhaled Oxygen Concentration - - Weight 71.4 kg (157 lb 8 oz) 10/22/2024 7:35 AM EDT Height 165.1 cm (5' 5") 10/22/2024 7:35 AM EDT Body Mass Index 26.21 10/22/2024 7:35 AM EDT documented in this encounter Patient Instructions * Patient Instructions* Zenobia Garcia LPN - 10/22/2024 7:38 AM EDT Images from the original note were not included. Mammography Mammography is an X-ray exam of your breast tissue. The image it makes is called a mammogram. A mammogram can help find problems with your breasts, such as cysts or cancer. Mammography is the best breast cancer screening tool available. Have screening mammograms and professional breast exams as often as your healthcare provider recommends. Also, be sure you know how your breasts normally look and feel. This makes it easier to noticeany changes. Report changes to your healthcare provider as soon as possible. How do I get ready for a mammogram? Schedule the test for 1 week after your period. Your breasts are less sore then. Make sure your clinic gets images of your last mammogram if it was done somewhere else. This lets the provider compare the 2 sets of images for any changes. On the morning of your test, don’t use deodorant, powder, or perfume. Wear a top that you can take off easily. What happens during a mammogram? You will need to undress from the waist up. The technologist will position your breast to get the best test results. Each of your breasts will be compressed one at a time. This helps get the most complete X-ray image. Your breasts will be repositioned to get at least 2 separate views of each breast. What happens after a mammogram? More X-rays are sometimes needed. If not done at the time of your initial mammogram, you’ll be called to schedule them. You should receive your test results in writing. Ask about this on the day of your appointment. Have mammograms as often as your healthcare provider recommends. Let the technologist know if: You’re or think you may be You have breast implants You have any scars or moles on or near your breasts You’ve had a breast biopsy or surgery You’re Date Last Reviewed: 12/14/2016 © 7869-8053 [employer]. [address] [place] [address]. All rights reserved. This information is not intended as a substitute for professional medical care. Always follow your healthcare professional's instructions documented in this encounter Progress Notes * Jono Brewer MD - 10/22/2024 7:40 AM EDT Images from the original note were not included. Subjective Marla Reed is a 39 year old female that presents for Physical-Exam (Pt here today for heryearly physical /Pt states she has been having bad lower stomach cramps once in a while that she can't sit up straight ) History of Present Illness The patient, a 39-year-old with a past medical history of exercise-induced asthma, GERD, generalized anxiety, and ADD, presents for a yearly physical. The patient reports experiencing constipation and abdominal cramping two to three times a month. The cramping is described as severe, causing discomfort when sitting, and lasts for two to three days.The patient denies any associated diarrhea or blood in the stool. The discomfort is localized to the lower abdomen and is accompanied by gas. The patient also reports occasional night sweats occurring about twice a week. The patient denies any significant changes to her health over the past year. The patient's current medications include Prozac 40mg daily, Trazodone 75mg nightly, and Dexamethasone 5mg extended release daily prescribed by psychiatry. She is attempting to lose a few pounds with diet and exercise. She is due for mammogram. Objective BP 95/66 | Pulse 61 | Temp 97.5 °F (36.4 °C) (Tympanic) | Resp 16 | Ht 5' 5" (1.651 m) | Wt 157 lb 8 oz (71.4 kg) | SpO2 98% | BMI 26.21 kg/m² | BSA 1.81 m² Physical Exam VITALS: BP- 95/66 MEASUREMENTS: BMI- 26.0. NECK: No cervical lymphadenopathy. ABDOMEN: Abdomen soft, non-tender. EXTREMITIES: No edema in lower extremities. Physical Exam Vitals reviewed. Constitutional: General: She is not in acute distress. HENT: Nose: No congestion or rhinorrhea. Eyes: General: No scleral icterus. Pupils: Pupils are equal, round, and reactive to light. Cardiovascular: Rate and Rhythm: Normal rate and regular rhythm. Heart sounds: No murmur heard. Pulmonary: Effort: Pulmonary effort is normal. No respiratory distress. Breath sounds: Normal breath sounds. No wheezing. Abdominal: General: There is no distension. Palpations: Abdomen is soft. Tenderness: There is no abdominal tenderness. Musculoskeletal: Cervical back: Neck supple. Lymphadenopathy: Cervical: No cervical adenopathy. Skin: General: Skin is warm and dry. Findings: No rash. Neurological: General: No focal deficit present. Mental Status: She is alert. Results LABS Cholesterol: normal (Fall 2023) Assessment and Plan Assessment & Plan Abdominal Pain Intermittent lower abdominal pain with cramping and bloating. Differential includes constipation, diverticulitis, pathology. No severe symptoms to warrant immediate colonoscopy. - Recommend MiraLAX for symptom management. - Consider pelvic ultrasound if symptoms persist or worsen. - Discuss potential colonoscopy if symptoms escalate. Generalized Anxiety Disorder On Prozac 40 mg and trazodone 75 mg daily. Reports waking at 3 AM, possibly due to anxiety or medication side effects. - Continue Prozac and trazodone. - Monitor sleep patterns and adjust if disturbances persist. Attention Deficit Disorder (ADD) On dexmethylphenidate 5 mg extended release daily. No issues reported. - Continue dexmethylphenidate. Exercise Induced Asthma No current issues reported. - Use asthma medications as needed. Gastroesophageal Reflux Disease (GERD) No specific issues reported. On Prozac, which may affect GERD symptoms. - Manage GERD symptoms as needed. Weight Management Desire to lose weight despite healthy lifestyle. BMI 26. Weight loss medications not suitable due to interactions and insurance issues. - Encourage healthy lifestyle with diet and exercise. Preventive Health Maintenance Due for a mammogram, up to date on other preventive measures. - Order mammogram. - Encourage regular dental and eye exams. Visit Diagnoses and Orders 1. Lower abdominal pain 2. PATRICK (generalized anxiety disorder) 3. Overweight (BMI 25.0-29.9) 4. Attention deficit disorder (ADD) without hyperactivity 5. Encounter for screening mammogram for malignant neoplasm of breast MAMMOGRAM SCREENING IDALMIS BILATERAL 6. Screening for depression DEPRESSION SCREENING PERFORMED 7. Encounter for routine preventive care for patient older than 28 days Wrap-Up Follow Up: Return in about 1 year (around 10/22/2025) for yearly physical. | For: yearly physical Text in this note was generated using an [employer] documentation service. I discussed the use of a device to record and summarize our discussion today. All persons present during the encounter consented to its use. documented in this encounter Nursing Notes * Zenobia Garcia LPN - 10/22/2024 7:30 AM EDT Chief Complaint Patient presents with Physical-Exam Pt here today for her yearly physical Pt states she has been having bad lower stomach cramps once in a while that she can't sit up straight documented in this encounter Plan of Treatment Upcoming Encounters Date Type Department Care Team (Late st Contact Info) Description 11/10/2024 3:30 PM EDT Imaging Radiology [facility] [address] [place] [phone] 10/23/2025 7:40 AM EDT Office Visit [facility] [address] [phone] Jono Brewer MD [address] [id number] Scheduled Orders Name Type Priority Associated Diagnoses Orde r Schedule MAMMOGRAM SCREENING IDALMIS BILATERAL Medical Imaging Routine Encounter for screening mammogram for malignant neoplasm of breast Expected: 10/22/2024, Expires: 11/21/2025 Health Maintenance Due Date Last Done Comments Hepatitis C Screening 2001 Hepatitis B Vaccine (1 of 3 - 19+ 3-dose series) 2002 Pneumococcal Vaccine: Pediatrics (0 to 5 Years) and At-Risk Patients (6 to 18 Years and 19+ Years) (1 of 2 - PCV) 2002 *SPIROMETRY ONCE FOR ASTHMA-ADULT 06/08/2022 COVID-19 Vaccine ( season) 2024 07/11/2021, 09/25/2020, 09/04/2020 Mammogram 03/30/2024 03/30/2023 Influenza Vaccine (FLU shot) (Season Ended) 2025 06/03/2021, 04/29/2019, 05/04/2015 DTap/Tdap Vaccines (2 - Td or Tdap) 05/19/2025 05/19/2015 Depression Screening 10/22/2025 10/22/2024, 10/22/19 Pap Smear 12/01/2025 12/01/2022, 09/13, 09/14/2016, Additional [...] as of this encounter Visit Diagnoses Diagnosis Encounter for routine preventive care for patient older than 28 days- Primary Lower abdominal pain Abdominal pain, other specified site PATRICK (generalized anxiety disorder) Generalized anxiety disorder Overweight (BMI 25.0-29.9) Overweight Attention deficit disorder (ADD) without hyperactivity Encounter for screening mammogram for malignant neoplasm of breast Other screening mammogram Screening for depression documented in this encounter Care Teams Stamping Mill Tender Relationship Specialty Start Date End Date November, [facility] [address] [facility] [address] PCP - General Family Medicine 10/22/23 documented as of this encounter
--- OUTSIDE RECORDS SUMMARY | 2024-11-20 16:22 | External Medical Summary | Summary of Care ---
Author Name Unknown Organization [facility] Address [address] [place] [address] Phone [phone] Care Team Providers Care Architecture Faculty Member Name Role Phone Alphonso Nunez MD Primary Care Provider [phone] Encounter Details Date Type Department Care Team (Latest Contact Info) Description 05/29/2024 12:03 PM EST - 05/29/2024 11:59 PM EST Hospital Encounter Radiology Film File [address], [place] [id number] Arrived Discharge Disposition: Home - Self Care Allergies No known active allergiesdocumented as of this encounter (statuses as of 05/30/2024) Medications Arnuity Ellipta 100 MCG/ACT Inhalation Aerosol Powder Breath Activated (fluticasone Furoate)Indicati ons:Asthma with severity to be determined,Chron ic cough Inhale 1 Puff by mouth daily. Rinse mouth / gargle and spit after each dose 30 Each 5 1 Active Additional Information Patient not taking.Reported on 05/29/2024 Albuterol Sulfate HFA 108 (90 Base) MCG/ACT Inhalation Aerosol SolutionIndicati ons:Asthma with severity to be determined,Chron ic cough Inhale 2 Puffs by mouth every 6 hours as needed for Shortness of Breath or Wheezing. 18 g 2 1 Active FLUoxetine HCl 40 MG Oral Capsule (PROzac) take 1 capsule by mouth every morning 90 Capsule 3 Active Ketoconazole 2 % External Shampoo (Nizoral)Indicat ions:Seborrheic dermatitis of scalp Massage into scalp 3x weekly and rinse out after 10 minutes, then titrate down to least amount needed for maintenance. 120 mL 2 4 Active Additional Information Patient not taking.Reported on 05/29/2024 Dexmethylphenida te HCl 2.5 MG Oral Tablet 4 Active traZODone HCl 50 MG Oral Tablet (Desyrel)Indicat ions:Primary insomnia Take 1.5 Tablets by mouth at bedtime. 135 Tablet 3 4 Active Clobetasol Propionate 0.05 % External Ointment (Temovate)Indica tions:Rash and nonspecific skin eruption Apply 2x daily to rash on back until resolved 30 g 4 Active Hospital, Clinic, or Other Facility Administered Medication Ordered Dose Route Frequency Start Date End Date Status Albuterol Sulfate (Proventil) (2.5 MG/3ML) 0.083% inhalation solution 2.5 mgIndications:Asthma with severity to be determined,Chronic cough 2.5 mg NEBULIZER ONCE PRN 06/03/2021 Active documented as of this encounter (statuses as of 05/30/2024) Active Problems Problem Noted Date Diagnosed Date [...] as of this encounter (statuses as of 05/30/2024) Resolved Problems Problem Noted Date Diagnosed Date [...] normal 12/01/2014 08/25/2019 Overview (11/16/2015): 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 kmb Tdap vaccine administered 05/19/2015 Margarita Brower RN ICD-10 update of inactive term documented as of this encounter (statuses as of 05/30/2024) Immunizations Name Administration Dates Next Due COVID-19 mRNA, LNP-s, No Pre serve, 2-Dose Series ([employer]) 07/11/2021,09/25/2020,09/04/2020 Seasonal Influenza, PF, 6 M & [...] AM EDT documented as of this encounter Plan of Treatment Upcoming Encounters Date Type Department Care Team (Late st Contact Info) Description 10/22/2024 7:40 AM EDT Office Visit [facility] [address] [facility] [place] [address] November, Jono Shah MD [address] [facility] [place] [address] Health Maintenance Due Date Last Done Comments Pneumococcal Vaccine: Pediatrics (0 to 5 Years) and At-Risk Patients (6 to 64 Years) (1 of 2 - PCV) 1989 Hepatitis C Screening 2001 Hepatitis B Vaccine (1 of 3 - 19+ 3-dose series) 2002 *SPIROMETRY ONCE FOR ASTHMA-ADULT 06/08/2022 COVID-19 Vaccine ( season) 2024 07/11/2021, 09/25/2020, 09/04/2020 Influenza Vaccine (FLU shot) (#1) 2024 06/03/2021, 04/29/2019, 05/04/2015 Mammogram 03/30/2024 03/30/2023 Depression Screening 10/21/2024 10/22/2023 DTap/Tdap Vaccines (2 - Td or Tdap) 05/19/2025 05/19/2015 Pap Smear 12/01/2025 12/01/2022, 09/13, 09/14/2016, Additional history exists Diabetes Screening 04/06/2026 04/06/2023, 10/18/2020 Cervical Cancer Screening 12/02/2027 HPV/Co-Test 12/02/2027 12/01/2022 Lipid Panel 04/06/2028 04/06/2023 HPV (Gardasil) Vaccine Aged Out No lo nger eligible based on patient's age to complete this topic MENINGOCOCCAL (MENACTRA/MENVEO) Aged Out No longer eligible based on patient's age to complete this topic documented as of this encounter Medical Devices Not on filedocumented as of this encounter Procedures Procedure Name Priority Date/Time Associated Diagnosis Comments DERM EXAM - DERM (IMAGES ONLY, NO REPORT) Routine 05/29/2024 12:03 PM EST Rash and nonspecific skin eruption documented in this encounter Results * DERM EXAM - DERM (IMAGES ONLY, NO REPORT) (05/29/2024 12:03 PM EST) Narrative Scheduling, Silent - 05/29/2024 12:03 PM EST This is an imaging study not interpreted or resulted by a [facility] or [facility] contracted radiologist. us Jackie Wu PA-C RADIOLOGY (RAD GENERAL ) Final Result documented in this encounter Care Teams Architecture Faculty Member Relationship Specialty Start Date End Date Alphonso Nunez MD [address] [place] [address] PCP - General Family Medicine 08/25/19 documented as of this encounter
--- OUTSIDE RECORDS SUMMARY | 2024-11-20 16:22 | External Medical Summary | Summary of Care ---
Author Name Unknown Organization [facility] Address [address] [place] [address] Phone [phone] Care Team Providers Care Food Safety Scientist Name Role Phone Ilya Cantrell MD Primary Care Provider [phone] Reason for Visit * Reason Comments Follow Up Pt here for rash loc ated on L side. Pt describes rash as "stings and is itchy". Encounter Details Date Type Department Care Team (Late st Contact Info) Description 05/29/2024 11:40 AM EST [facility] [address] [place] [address] [place] [address] Jackie Wu PA-C [address] [place] [address] [place] [address] Rash and nonspecific skin eruption* Allergies No known active allergiesdocumented as of this encounter (statuses as of 05/29/2024) Medications Arnuity Ellipta 100 MCG/ACT Inhalation Aerosol Powder Breath Activated (fluticasone Furoate)Indicati ons:Asthma with severity to be determined,Chron ic cough Inhale 1 Puff by mouth daily. Rinse mouth / gargle and spit after each dose 30 Each 5 06/03/20 21 Active Additional Information Patient not taking.Reported on 05/29/2024 Albuterol Sulfate HFA 108 (90 Base) MCG/ACT Inhalation Aerosol SolutionIndicati ons:Asthma with severity to be determined,Chron ic cough Inhale 2 Puffs by mouth every 6 hours as needed for Shortness of Breath or Wheezing. 18 g 2 06/03/20 21 Active FLUoxetine HCl 40 MG Oral Capsule (PROzac) take 1 capsule by mouth every morning 90 Capsule 05/30/20 23 Active Ketoconazole 2 % External Shampoo (Nizoral)Indicat ions:Seborrheic dermatitis of scalp Massage into scalp 3x weekly and rinse out after 10 minutes, then titrate down to least amount needed for maintenance. 120 mL 2 10/22/19 24 Active Additional Information Patient not taking.Reported on 05/29/2024 Dexmethylphenida te HCl 2.5 MG Oral Tablet 10/17/19 24 Active traZODone HCl 50 MG Oral Tablet (Desyrel)Indicat ions:Primary insomnia Take 1.5 Tablets by mouth at bedtime. 135 Tablet 3 10/22/19 24 Active Clobetasol Propionate 0.05 % External Ointment (Temovate)Indica tions:Rash and nonspecific skin eruption Apply 2x daily to rash on back until resolved 30 g 05/29/20 24 Active Betamethasone Dipropionate 0.05 % External Ointment Apply 2x daily (or more if itchy instead of scratching) to rash on feet until resolved, then when flaring 50 g 01/09/20 23 024 Discontin ued(Medic ation/Dos e Changed) Triamcinolone Acetonide 0.1 % External Ointment (Aristocort)Yaritza cations:Irritant contact dermatitis, unspecified trigger Apply 2x daily (or more if itchy instead of scratching) to scalp dermatitis until resolved then when flaring 80 g 10/22/19 24 024 Discontin ued(Medic ation/Dos e Changed) Hospital, Clinic, or Other Facility Administered Medication Ordered Dose Route Frequency Start Date End Date Status Albuterol Sulfate (Proventil) (2.5 MG/3ML) 0.083% inhalation solution 2.5 mgIndications:Asthma with severity to be determined,Chronic cough 2.5 mg NEBULIZER ONCE PRN 06/03/2021 Active documented as of this encounter (statuses as of 05/29/2024) Active Problems Problem Noted Date Diagnosed Date [...] as of this encounter (statuses as of 05/29/2024) Resolved Problems Problem Noted Date Diagnosed Date [...] normal 12/01/2014 08/25/2019 Overview (11/16/2015): 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 kmb Tdap vaccine administered 05/19/2015 Margarita Brower RN ICD-10 update of inactive term documented as of this encounter (statuses as of 05/29/2024) Immunizations Name Administration Dates Next Due COVID-19 mRNA, LNP-s, No Pre serve, 2-Dose Series ([employer]) 07/11/2021,09/25/2020,09/04/2020 Seasonal Influenza, PF, 6 M & [...] in the Last Year Never true 08/25/2019 Utilities Answer Date Recorded Do you have trouble paying y our heating, water, or electric bill? (Adult - for ages 18 years and over) Not on file 01/01/2024 Is your family able to pay t he heat, water, or electric bill? (Household - for ages 0-17 years) Not on file 01/01/2024 Does your family have access to good internet? (Household - for ages 0-17 years) Not on file 01/01/2024 Social Connections Answer Date Recorded How often do you feel lonely or isolated from those around you? (Adult - for ages 18 years and over) Not on file 01/01/2024 Comments No Sex and Gender Information Value Date Recorded Sex Assigned at Female 10/31/2021 10:30 AM EDT Legal Sex Female 5:58 AM EST Gender Identity Female 10/31/2021 10:30 AM EDT Sexual Orientation Straight 10/31/2021 10 :30 AM EDT documented as of this encounter Patient Instructions * Patient Instructions* Jackie Wu PA-C - 05/29/2024 12:04 PM EST The side effects of chronic topical steroid use were discussed with patient and include but are notlimited to telangiectasia (broken blood vessels), striae (stretch owen), atrophy (thin skin), purpura (bruising), allergic contact dermatitis, acneiform eruptions and medicine addiction (rebound rash after cessation), cataracts, suppression of the body’s ability to create its own cortisol, weight gain, poor height growth, and high blood sugar. Advocated avoidance of use nears eyes (glaucoma and cataracts) and skin folds (enhanced effect = atrophy) unless otherwise directed. Advised to use the medication only as needed. Our plan will alwaysbe to use the lowest potency possible and to use a regimen that employs intermittent rather than constant use of topical steroids. If the rash clears then stop and transition to CERAVE CREAM for maintenance. documented in this encounter Progress Notes * Jackie Wu PA-C - 05/29/2024 11:46 AM EST SUBJECTIVE: History of Present Illness: Marla Reed is a 39 year old female seen today for follow up of rash on L flank. Previous appointment date: 03/15/2021 Last attempted treatments include: [facility] derm treatment Rash on L flank, present for about 1 month but 2 days started to get more sensitive and burn/sting.Never had vesicular lesions. Back with some itch and irritation. REVIEW OF SYSTEMS: SKIN: No other new or changing moles. HEME/LYMPH: No new or enlarging lumps or bumps. CONSTITUTIONAL: No nausea, vomiting, fevers, chills, diarrhea. No recent unintended weight loss, night sweats, appetite or malaise. RESP: negative MSK/EXT: Negative or as per HPI GI: negative CV: Negative or as per HPI Rest of systems are negative or as per HPI SKIN CANCER HX: Mildly atypical nevus (R upper back) Reviewed, same day as visit, 0 [facility] Dermatology lab work(s)/pathology report(s) as well as those sent by referring provider prior to seeing pt. MEDICA TIONS: Current Outpatient Medications Medication Sig Dispense Refill Arnuity Ellipta 100 MCG/ACT Inhalation Aerosol Powder Breath Activated (fluticasone Furoate) Inhale1 Puff by mouth daily. Rinse mouth / gargle and spit after each dose (Patient not taking: Reported on 05/29/2024) 30 Each 5 Albuterol Sulfate HFA 108 (90 Base) MCG/ACT Inhalation Aerosol Solution Inhale 2 Puffs by mouth every 6 hours as needed for Shortness of Breath or Wheezing. 18 g 2 Betamethasone Dipropionate 0.05 % External Ointment Apply 2x daily (or more if itchy instead of scratching) to rash on feet until resolved, then when flaring 50 g 0 FLUoxetine HCl 40 MG Oral Capsule (PROzac) take 1 capsule by mouth every morning 90 Capsule 0 Ketoconazole 2 % External Shampoo (Nizoral) Massage into scalp 3x weekly and rinse out after 10 minutes, then titrate down to least amount needed for maintenance. (Patient not taking: Reported on 05/29/2024) 120 mL 2 Dexmethylphenidate HCl 2.5 MG Oral Tablet traZODone HCl 50 MG Oral Tablet (Desyrel) Take 1.5 Tablets by mouth at bedtime. 135 Tablet 3 Triamcinolone Acetonide 0.1 % External Ointment (Aristocort) Apply 2x daily (or more if itchy instead of scratching) to scalp dermatitis until resolved then when flaring 80 g 0 Current Facility-Administered Medications Medication Dose Route Frequency Provider Last Rate Last Admin Albuterol Sulfate (Proventil) (2.5 MG/3ML) 0.083% inhalation solution 2.5 mg 2.5 mg Nebulizer Once PRN Bere Duffy, DO ALLERG IES: Patient has noknown allergies. OBJECT JOE: GEN: alert, no distress, appears oriented, pleasant, and cooperative. SKIN: Detailed exam of abdomen and back completed: 1. L lateral abdomen-2 pink-red dermal papules/plaques 2. L lateral mid back-Some erythema and 2 excoriated papules. 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 Irritant contact dermatitis? On L lateral mid back-Apply clobetasol 0.05% ointment BID to itchy areas for next week. Patient alone today. Photo(s) of #1-2 taken, pt verbally consented to having photo(s) taken. Follow-up: will send me a f/u message in 1 week through the portal about conditions Applicable photos (if any) and chart reviewed by Dr. Laz Owen. Presumed diagnoses, expected natural histories, and management options discussed with the patient at length. Questions were addressed and anticipatory guidance provided. They were instructed to contact me if additional questions, concerns, or problems develop in the interim. -There were no barriers to learning and no other pain was related to today's visit. The patient and/or person accompanying patient demonstrates understanding of the visit and treatment. Jackie Wu PA-C 05/29/2024 11:46 AM REF: SELF [address] ADDRESS AVAILABLE PCP: ILYA CANTRELL [address] [place] [address] [place] [address] [phone] documented in this encounter Nursing Notes * Joanne Salamanca LPN - 05/29/2024 11:43 AM EST Patient identified by full name and date of Chief Complaint Patient presents with Follow Up Pt here for rash located on L side. Pt describes rash as "stings and is itchy". documented in this encounter Plan of Treatment Upcoming Encounters Date Type Department Care Team (Late st Contact Info) Description 10/22/2024 7:40 AM EDT Office Visit [facility] [address] [place] [address] November, Jono Shah MD [facility] [address] [place], [place] [id number] Health Maintenance Due Date Last Done Comments [...] study not interpreted or resulted by a [facility] or [employer] contracted radiologist. Jackie Wu PA-C RADIOLOGY (RAD GENERAL ) Final Result documented in this encounter Visit Diagnoses Diagnosis Rash and nonspecific skin eruption- Primary Rash and other nonspecific skin eruption documented in this encounter Care Teams Food Safety Scientist Relationship Specialty Start Date End Date Ilya Cantrell MD [address] [facility] [place] [address] PCP - General Family Medicine 08/25/19 documented as of this encounter
--- OUTSIDE RECORDS SUMMARY | 2024-11-20 16:22 | External Medical Summary | Summary of Care ---
Author Name Unknown Organization [facility] Address [address] [place] [address] Phone [phone] Care Team Providers Care General Science Teacher Name Role Phone Ilya Cantrell MD Primary Care Provider [phone] Reason for Visit * Reason Comments Follow Up Pt here for rash loc ated on L side. Pt describes rash as "stings and is itchy". 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 kmb Tdap vaccine administered 05/19/2015 Margarita Brower RN ICD-10 update of inactive term documented as of this encounter (statuses as of 05/29/2024) Immunizations Name Administration Dates Next Due COVID-19 mRNA, LNP-s, No Pre serve, 2-Dose Series ([employer] 07/11/2021,09/25/2020,09/04/2020 Seasonal Influenza, PF, 6 M & [...] in this encounter Progress Notes * Jackie uW PA-C - 05/29/2024 11:46 AM EST SUBJECTIVE: [...] back) Reviewed, same day as visit, 0 [facility] Dermatology lab work(s)/pathology report(s) as well as [...] [address]RE[address] ADDRESS AVAILABLE PCP: ILYA CANTRELL [address] [place] [address] [place] [address] [phone] documented in this encounter Nursing Notes * [...] Description 10/22/2024 7:40 AM EDT Office [facility] [address] [facility] [place] [address] November, Jono Shah MD [address] [place] [facility] [place] [address] Health Maintenance Due Date Last Done Comments [...] interpreted or resulted by a [facility] or [facility] contracted radiologist. Jackie Wu PA-C RADIOLOGY (RAD GENERAL ) Final Result documented in this encounter Visit Diagnoses Diagnosis Rash and nonspecific skin eruption- Primary Rash and other nonspecific skin eruption documented in this encounter Care Teams General Science Teacher Relationship Specialty Start Date End Date Ilya Cantrell MD [address] [facility] [place] [address] PCP - General Family Medicine 08/25/19 documented as of this encounter
--- OUTSIDE RECORDS SUMMARY | 2024-11-20 16:22 | External Medical Summary | Summary of Care ---
Author Name Unknown Organization [facility] Address [address] [place] [address] Phone [phone] Care Team Providers Care Groover And Turner Name Role Phone Alphonso Nunez MD Primary Care Provider [phone] Reason for Visit * Reason Onset Date Comments Encounter Created in Error 06/16/2024 Encounter Details Date Type Department Care Team (Late st Contact Info) Description 06/16/[address] [place] [address] Jackie Wu PA-C [address] [place] [address] [place] [address] Encounter Created in Error Allergies No known active allergiesdocumented as of this encounter (statuses as of 06/16/2024) Medications Arnuity Ellipta 100 MCG/ACT Inhalation Aerosol [...] as of this encounter (statuses as of 06/16/2024) Active Problems Problem Noted Date Diagnosed Date [...] as of this encounter (statuses as of 06/16/2024) Resolved Problems Problem Noted Date Diagnosed Date Resolved Date History of 2019 novel valdivia virus disease (COVID-19) 06/03/2021 10/28/2021 Chronic rhinitis 06/03/2021 10/28/2021 H/O dysplastic nevus 02/17/2020 04 021 Overview (02/17/2020): Mildly atypical nevus (R upper back) Encounter for surveillance of abnormal nevi 02/24/2019 08/25/2019 Overview (02/24/2019): Mildly atypical nevus (R upper back) Carrier of group B Streptococcus 07/05/2015 08/25/2019 Overview (07/05/2015): Abx in labor Encounter for supervision of other normal 12/01/2014 08/25/2019 Overview (11/16/2015): 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 kmb Tdap vaccine administered 05/19/2015 Margarita Brower RN ICD-10 update of inactive term documented as of this encounter (statuses as of 06/16/2024) Immunizations Name Administration Dates Next Due COVID-19 mRNA, LNP-s, No Pre serve, 2-Dose Series ([employer]) 07/11/2021,09/25/2020,09/04/2020 Seasonal Influenza, PF, 6 M & [...] Description 10/22/2024 7:40 AM EDT [facility] [address] [place] [address] November, Jono Shah MD [address] [place] [address] Health Maintenance Due Date Last Done Comments [...] Tdap) 05/19/2025 05/19/2015 Pap Smear 12/01/2025 12/01/2022, 03, 09/14/2016, Additional history exists Diabetes Screening 05/22/2027 [...] Not on filedocumented as of this encounter Care Teams Groover And Turner Relationship Specialty Start Date End Date Alphonso Nunez MD [address] [place] [address] PCP - General Family Medicine 08/25/19 documented as of this encounter
--- OUTSIDE RECORDS SUMMARY | 2024-11-20 16:22 | External Medical Summary | Summary of Care ---
Author Name Unknown Organization [facility] Address [address] [place] [address] Phone [phone] Care Team Providers Care Refractory Worker Name Role Phone NovemberInder MD Primary Care Provider [phone] Reason for Visit * Reason Comments eRx-Medication Refill Encounter Details Date Type Department Care Team (Late st Contact Info) Description 10/25/2024 [facility] [address] [place] [address] Inder Lal MD [address] [facility] [place] [address] Primary insomnia Allergies No known active allergiesdocumented as of this encounter (statuses as of 10/27/2024) Medications FLUoxetine HCl 40 MG Oral Capsule (PROzac) take 1 capsule by mouth every morning 90 Capsule 05/30/20 23 Active Clobetasol Propionate 0.05 % External Ointment (Temovate)Indic ations:Rash and nonspecific skin eruption Apply 2x daily to rash on back until resolved 30 g 05/29/20 24 Active Dexmethylphenid ate HCl ER 5 MG Oral Capsule Extended Release 24 Hour Take 1 Capsule by mouth in the morning. 09/16/19 25 Active traZODone HCl 50 MG Oral Tablet (Desyrel)Indica tions:Primary insomnia TAKE 1.5 TABLETS BY MOUTH DAILY AT BEDTIME. 135 Tablet 1 10/28/19 25 Active traZODone HCl 50 MG Oral Tablet (Desyrel)Indica tions:Primary insomnia Take 1.5 Tablets by mouth at bedtime. 135 Tablet 3 10/22/19 24 025 Discontinued Hospital, Clinic, or Other Facility Administered Medication Ordered Dose Route Frequency Start Date End Date Status Albuterol Sulfate (Proventil) (2.5 MG/3ML) 0.083% inhalation solution 2.5 mgIndications:Asthma with severity to be determined,Chronic cough 2.5 mg NEBULIZER ONCE PRN 06/03/2021 Active documented as of this encounter (statuses as of 10/27/2024) Active Problems Problem Noted Date Diagnosed Date [...] as of this encounter (statuses as of 10/27/2024) Resolved Problems Problem Noted Date Diagnosed Date [...] 12/01/2014 08/25/2019 Overview (11/16/2015): 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 kmb Tdap vaccine administered 05/19/2015 Margarita Brower RN ICD-10 update of inactive term documented as of this encounter (statuses as of 10/27/2024) Immunizations Name Administration Dates Next Due COVID-19 mRNA, LNP-s, No Pre serve, 2-Dose Series (Pf[employer]) 07/11/2021,09/25/2020,09/04/2020 Seasonal Influenza, PF, 6 M & above, IM , (FluLaval or Fluzone) 06/03/2021,04/29/2019 TDAP (age 10 and older)(Boostrix) 05/19/2015 documented as of this encounter Social History Tobacco Use Types Packs/Day Years Used Date Smoking Tobacco: Former Cigarettes 1 996 - 07/16/2011 Passive Smoke Exposure: Past Smokeless Tobacco: Never Comments:Starting smoking at 14 [...] 10/22/2024 Does the household have a re lar source of income? (Household - for ages [...] AM EDT documented as of this encounter Miscellaneous Notes * Telephone Encounter - Julia Naylor RPh - 10/27/2024 7:31 AM EDTSigned Prescriptions: Disp Refills traZODone HCl 50 MG Oral Tablet (Desyrel) 135 Ta*1 Sig: TAKE 1.5 TABLETS BY MOUTH DAILY AT BEDTIME.Authorizing Provider: INDER LAL User: JULIA NAYLOR documented in this encounter Plan of Treatment Upcoming Encounters Date Type Department Care Team (Late st Contact Info) Description 11/10/2024 3:30 PM EDT Imaging Radiology [address] [place] [address] 10/23/2025 7:40 AM EDT [facility] [place] [address] [place] [address] November, Inder Shah MD [address] [place] [address] Health Maintenance Due Date Last Done Comments [...] as of this encounter Visit Diagnoses Diagnosis Primary insomnia Persistent disorder of initiating or maintaining sleep documented in this encounter Care Teams Refractory Worker Relationship Specialty Start Date End Date November, Inder Shah MD [address] [place] [address] PCP - General Family Medicine 10/22/23 documented as of this encounter
--- OUTSIDE RECORDS SUMMARY | 2024-11-20 16:22 | External Medical Summary | Summary of Care ---
Author Name Unknown Organization [facility] Address [address] [place] [address] Phone [phone] Care Team Providers Care Die Fitter Name Role Phone Alphonso Nunez MD Primary Care Provider [phone] Encounter Details Date Type Department Care Team (Late st Contact Info) Description 06/03/2024 Orders Only [facility] [address] [place] [address] NovemberJono MD [address] [place] [address] Allergies No known active allergiesdocumented as of this encounter (statuses as of 06/03/2024) Medications Arnuity Ellipta 100 MCG/ACT Inhalation Aerosol [...] as of this encounter (statuses as of 06/03/2024) Active Problems Problem Noted Date Diagnosed Date [...] as of this encounter (statuses as of 06/03/2024) Resolved Problems Problem Noted Date Diagnosed Date [...] normal 12/01/2014 08/25/2019 Overview (11/16/2015): 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 kmb Tdap vaccine administered 05/19/2015 Margarita Brower RN ICD-10 update of inactive term documented as of this encounter (statuses as of 06/03/2024) Immunizations Name Administration Dates Next Due COVID-19 mRNA, LNP-s, No Pre serve, 2-Dose Series ([employer]) 07/11/2021,09/25/2020,09/04/2020 Seasonal Influenza, PF, 6 M & [...] Upcoming Encounters Date Type Department Care Team (Luis Alberto garcia Contact Info) Description 10/22/2024 7:40 AM EDT Office Visit [place] [address] [place] [address] November, Jono Shah MD [address] [place] [address] Health Maintenance Due Date Last Done Comments [...] 03, 09/14/2016, Additional history exists Diabetes Screening 04/06/2026 05/22/2024, 0 04/06/2023, 10/18/2020 Cervical Cancer Screening 12/02/2027 HPV/Co-Test 12/02/2027 12/01/2022 Lipid Panel 04/06/2028 05/22/2024, 04/06/2023 HPV (Gardasil) Vaccine Aged Out No lo nger eligible based on patient's age to complete this topic MENINGOCOCCAL (MENACTRA/MENVEO) Aged Out No longer eligible based on patient's age to complete this topic documented as of this encounter Medical Devices Not on filedocumented as of this encounter Procedures Procedure Name Priority Date/Time Associated Diagnosis Comments CHEMISTRY-OUTSIDE Routine 05/22/2024 TSH Routine 05/22/2024 documented in this encounter Results * (ABNORMAL) CHEMISTRY-OUTSIDE (05/22/2024) Not all results display below - see scan for full detail OUTSIDE LAB (SEE SCANNED REPORT) Comment:SCAN INCLUDES - LP, CMP, A1C, TSH, CBCD CREATININE 0.85 0.50 - 0.99 MG/DL OUTSIDE LAB (SEE SCANNED REPORT) EGFR 88 >=60 ML/MIN OUTSIDE LAB (SEE SCANNED REPORT) POTASSIUM 4.3 3.5 - 5.3 MMOL/L OUTSIDE LAB (SEE SCANNED REPORT) GLUCOSE 91 65 - 99 MG/DL OUTSIDE LAB (SEE SCANNED REPORT) HOURS FASTING OUTSID E LAB (SEE SCANNED REPORT) TRIGLYCERIDES-OUT SIDE LAB 53 <150 MG/DL OUTSIDE LAB (SEE SCANNED REPORT) CHOLESTEROL-OUTSI DE LAB 199 <200 MG/DL OUTSIDE LAB (SEE SCANNED REPORT) HDL-OUTSIDE LAB 71 >=50 MG/DL OUT SIDE LAB (SEE SCANNED REPORT) CHOL/HDL RATIO-OUTSIDE LAB 2.8 <5.0 CALC OUTSIDE LA B (SEE SCANNED REPORT) LDL (CALCULATED)-OUTS [facility] 114(H) <100 MG/DL OUTSIDE LAB (SEE SCANNED REPORT) LDL (DIRECT MEASURE)-OUTSIDE LAB OUTSIDE LAB (SEE SCANNED REPORT) HEMOGLOBIN, [id number] LAB 5.1 <5.7 % OUTSIDE LAB (SEE SCANNED REPORT) PHOSPHORUS-OUTSID E LAB OUTSIDE LAB (SEE SCANNED REPORT) PTH-OUTSIDE LAB OUTS [facility] (SEE SCANNED REPORT) MICROALBUMIN RATIO-OUTSIDE LAB OUTSIDE LA B (SEE SCANNED REPORT) PROTEIN, UA-OUTSIDE LAB OUTSIDE LAB (SEE SCANNED REPORT) HGB 13.6 11.7 - 15.5 G/DL OUTSIDE LAB (SEE SCANNED REPORT) 05/22/2024 us Jono Brewer MD LABORATORY Final Result OUTSIDE LAB (SEE SCANNED REPORT) * TSH (05/22/2024) TSH - OUTSIDE LAB 2.55 0.40 - 4.50 MIU/L OUTSIDE LAB (SEE SCANNED REPORT) Blood Venous blood specimen / Unknown 05/22/2024 us Jono rBewer MD LAB BLOOD ORDERABLES Final Res ult OUTSIDE LAB (SEE SCANNED REPORT) documented in this encounter Care Teams Die Fitter Relationship Specialty Start Date End Date Alphonso Nunez MD [address] [facility] [place] [address] PCP - General Family Medicine 08/25/19 documented as of this encounter
--- OUTSIDE RECORDS SUMMARY | 2024-11-20 16:22 | External Medical Summary | Summary of Care ---
Author Name Unknown Organization [facility] Address [address] [place] [address] Phone [phone] Care Team Providers Care Hospital Administrator Name Role Phone Ilya Cantrell MD Primary Care Provider [phone] Reason for Visit * Reason Comments Follow Up Pt here for rash loc ated on L side. Pt describes rash as "stings and is itchy". 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 kmb Tdap vaccine administered 05/19/2015 Margarita Brower RN ICD-10 update of inactive term documented as of this encounter (statuses as of 05/30/2024) Immunizations Name Administration Dates Next Due COVID-19 mRNA, LNP-s, No Pre serve, 2-Dose Series (Nippo) 07/11/2021,09/25/2020,09/04/2020 Seasonal Influenza, PF, 6 M & [...] documented in this encounter Progress Notes * Laz Owen MD - 05/30/2024 8:00 AM EST I have seen and examined the patient via teledermatology review of chart note and photos with Jackie Wu PA-C. I have reviewed and agree with the assessment and plan. * Jackie Wu PA-C - 05/29/2024 11:46 [...] back) Reviewed, same day as visit, [facility] Dermatology lab work(s)/pathology report(s) as well as those sent by referring provider prior to seeing pt. MEDICA TIONS: Current Outpatient Medications Medication Sig Dispense Refill Arnisidro Ellipta 100 MCG/ACT Inhalation Aerosol Powder Breath [...] mg 2.5 mg Nebulizer Once PRN Bere Duffy DO ALLERG IES: Patient has noknown allergies. [...] NO STREET ADDRESS AVAILABLE PCP: ILYA CANTRELL [address] [address] [phone] documented in this encounter Nursing Notes * [...] Description 10/22/2024 7:40 AM EDT Office Visit [address] [address] November, Jono Shah MD [address] [place] [address] Health Maintenance Due Date Last Done Comments [...] study not interpreted or resulted by a [employer] or [employer] contracted radiologist. Jackie Wu PA-C RADIOLOGY (RAD GENERAL ) Final Result documented in this encounter Visit Diagnoses Diagnosis Rash and nonspecific skin eruption- Primary Rash and other nonspecific skin eruption documented in this encounter Care Teams Hospital Administrator Relationship Specialty Start Date End Date Ilya Cantrell MD [address] [place] [id number] PCP - General Family Medicine 08/25/19 documented as of this encounter
[2024-11-20] MEDS: SODIUM CHLORIDE 0.9% 1,000 ML IV SCH (16:42)
--- NOTE | 2024-11-20 22:57 | Electrocardiogram Report ---
Test Reason : Blood Pressure : */* mmHG Vent. Rate : 75 BPM Atrial Rate : 75 BPM P-R Int : 170 ms QRS Dur : 100 ms QT Int : 434 ms P-R-T Axes : 66 -14 63 degrees QTcB Int : 484 ms Normal sinus rhythm Nonspecific T wave abnormality Prolonged QT Abnormal ECG No previous ECGs available Confirmed by Dony Arrieta ([id number]) on 11/20/2024 10:56:50 PM Referred By: REFERRED SELF Confirmed By: Dony Arrieta
[2024-11-21 07:29] VITALS: BP 104/67; TEMP 98.6; O2SAT 96
[2024-11-21] MEDS: ENOXAPARIN INJ 40 MG/0.4 ML SYR SQ SCH (07:35)
[2024-11-21 08:16] LABS: Basophils # (auto) 0.04 K/uL (0.00-0.20); Basophils % (auto) 0.6 %; Eosinophils # (auto) 0.12 K/uL (0.00-0.50); Eosinophils % (auto) 1.7 %; Hematocrit (blood only) 40.4 % (37.0-47.0); Hemoglobin 13.5 g/dl (12.0-16.0); Immature Granulocytes # (auto) 0.04 K/uL (0.01-0.20); Immature Granulocytes % (auto) 0.6 %; Lymphocytes # (auto) 1.27 K/uL (1.20-3.40); Lymphocytes % (auto) 17.5 %; Mean Corpuscular Hgb Conc 33.4 g/dL (32.0-36.0); Mean Corpuscular Volume 89.8 fL (80.0-100.0); Mean Platelet Volume 9.1 fL (9.4-12.4); Monocytes # (auto) 0.61 K/uL (0.11-0.59); Monocytes % (auto) 8.4 %; Neutrophils # (auto) 5.18 K/uL (1.40-6.50); Neutrophils % (auto) 71.2 %; Platelet Count 249 K/uL (130-400); RDW Coefficient of Variation 12.1 % (11.5-14.5); RDW Standard Deviation 39.7 fL (36.4-46.3); White Blood Count 7.26 K/ul (4.8-10.8)
[2024-11-21 08:20] LABS: Estimated Average Glucose 100 mg/dl; Hemoglobin A1C 5.1 % (4.5-5.6)
[2024-11-21 08:30] LABS: BUN Creatinine Ratio 9.6 (10-20); Calcium 8.5 mg/dl (8.6-10.3); Creatinine Clr Calc Pharmacy 102.9 ml/min; Potassium 4.1 mmol/L (3.5-5.1)
[2024-11-21] MEDS ORDERED: STROKE PATIENT DISCHARGE STA (09:10)
--- NOTE | 2024-11-21 09:12 | Discharge Summary ---
Discharge Summary Date of Service November 21, 2024 Principal Dx & Hospital Course #1 = Principal Diagnosis (1) Stroke-like symptoms: (2) Expressive aphasia: (3) Attention deficit disorder (ADD) without hyperactivity: (4) PATRICK (generalized anxiety disorder): Plan Ms. Reed is a 39 y/o female with history of ADD without hyperactivity and PATRICK who presented to the ED today as a stroke alert. Symptoms on presentation included expressive aphasia, tingling in hands, and sensation of limb heaviness. Initial CT head, CTA head/neck were negative. Seen by tele-neurologist and was offered TNK but declined. Symptoms are improving other than residual expressive aphasia. Pt was referred for admission for further evaluation and management. Patient was evaluated by Neurology who felt the expressive aphasia and brain fog was 2/2 taking cold medicine given speech pattern with the negative MRI suggests a functional neurologic disorder. No further pharmacologic support recommended therefore aspirin and lipitor discontinued. On day of discharge, patient was eating well and ambulating without difficult. Patient with intermittent stuttering noted, but otherwise no other focal neurologic deficits noted #Stroke-like symptoms suspected medication side effect #Expressive aphasia - MRI Brain negative - Aspirin 81 mg daily and Atorvastatin 40 mg daily discontinued - A1c 5.1 - ECHO with 55-60% EF and no asd/pfo - lipid panel total chol at 186, ldl 110 -Neurology: stroke ruled out, likely medication interaction with current ADHD meds/function d/o -Discharge to home #ADHD #PATRICK Chronic, stable Continue outpatient medications Notes For Next Care Provider Avoid cough medicines with "DM" or "severe" given interactions with current home medications Medication Changes From Visit none Admission HPI Per Admitting Provider This is a 39 y/o female with history of ADD without hyperactivity and PATRICK who presented to the ED today as a stroke alert. Pt reports cold symptoms for the last 5-7 days including cough, congestion, sinus pressure, bilateral ear fullness, and rhinorrhea. This morning around 6 am she took a dose of Delsym for the cough. Shortly after taking this, she started to feel off-balance and foggy ("like I was drunk") so she called her to come pick her up and take her to urgent care. Around 9 am, as she was being checked into urgent care and started with expressive aphasia. Also noted generalized sense of heaviness in her extremities and tingling in bilateral hands. She has never had symptoms like this previously. Currently, she reports feeling fine except for the expressive aphasia. The sensation of heaviness and tingling have resolved. She reports that she's thinking clearly but has trouble finding the right words. She denies dysphagia, facial droop, headache, chest pain, dyspnea, vision changes. Admission Exam Per Admitting Provider General: Not in respiratory distress Eyes: Conjunctivae normal, not pale, anicteric sclerae ENMT: External ear and nose normal, oropharynx normal Respiratory: Normal respiratory effort, no respiratory distress, lungs clear to auscultation, no crackles and no wheezes Cardiovascular: RRR S1 S2 Gastrointestinal (Abdomen): Abdomen is not distended, soft, non-tender to palpation, no guarding, no palpable hepatosplenomegaly, normal bowel sounds Musculoskeletal: No pedal edema Neurologic: Alert and oriented x 3, +Expressive dysphasia, Power is normal and equal in all extremities, No sensory deficits noted. CN II, II, IV, V, , VII, IX, XI, XII grossly intact. No dysdiadochokinesia. Psychiatric: Euthymic affect Discharge Exam Constitutional WD/WN, vitals as above Respiratory normal respiratory effort, lungs clear to auscultation Cardiovascular RRR, no murmur, no edema Musculoskeletal no cyanosis or clubbing, extremities motor strength 5/5 Neurologic stammering noted otherwise CNII-XII intact Updated Medication List Medication Instructions Recorded Confirmed Type trazodone 50 mg tablet 75 mg PO DAILY 07/26/23 11/20/24 History dexmethylphenidate 5 mg 5 mg PO DAILY 11/20/24 11/20/24 History capsule,extended release [id number] fluoxetine 40 mg capsule 80 mg PO DAILY 11/20/24 11/20/24 History Hospital Stay Data Consultations 11/20/24 11:11 ED Decision to Admit Stat 11/20/24 13:27 Consult Neurology Routine Diagnostic Imagining Performed 11/20/24 10:07 CT angio head w con Stat CT angio neck with con Stat CT head/brain wo con Stat 11/20/24 11:05 MR brain wo con Stat Pending Results Patient Have Any Pending Studies at Discharge: No Discharge Instructions Given to Patient (Per Discharging Provider) You were admitted with concerns of your speech, or expressive aphasia, and brain fog after taking cold medicine. MRI was negativefor stroke. No further neurologic workup otherwise. Please discuss referral to neurology if symptoms persist. Please return to ED if symptoms worsen Total Time Total Time Spent Total Time Spent (In Minutes): 45
[2024-11-21 09:39] VITALS: PULSE 75
== END 2024-11-21 10:23 | disposition home or self-care (01) | DRG 93 ==
LOC: ED 10:18 → 2S 12:14 → SUATTDRO 12:14 → 2S 13:10